=== PATIENT | male | born 1985 | race Hispanic/Latino ===

== ENCOUNTER 2017-05-10 18:39 | Inpatient (IN) | payer SELFPAY ==
[~2017-05-10 18:39] MED LIST: ISOVUE-370 76%-LOCM 1 ML ONE
[2017-05-10] MEDS ORDERED: Ondansetron HCl/PF 4 MG/2 ML Vial ONE ×2 (19:09→20:54)
[2017-05-10] MEDS ORDERED: Fentanyl 100 MCG/2 ML VIAL ONE (19:09)
[2017-05-10 19:14] LABS: Hemoglobin 18.5 g/dL (14.0-18.0); Mean Corpuscular HGB CONC 33.9 g/dL (32.0-36.0); Mean Corpuscular Hemoglobin 30.3 pg (27.0-31.0); Mean Corpuscular Volume 89.4 fl (80.0-94.0); Platelet Count 342 thou/uL (130-400); RBC Distribution Width 11.5 % (11.5-14.5); White Blood Cell (WBC) Count 19.1 thou/uL (4.8-10.8)
[2017-05-10 19:24] LABS: Lactic Acid 2.8 mmol/L (0.5-2.2)
[2017-05-10] MEDS ORDERED: Morphine 4 MG/ML VIAL ONE (19:31)
[2017-05-10 19:34] LABS: ALT (SGPT) 45 U/L (8-55); AST (SGOT) 25 U/L (5-34); Albumin 5.1 g/dL (3.5-5.0); Alkaline Phosphatase 120 U/L (40-150); Anion Gap 17 mmol/L (10-20); BUN (Urea Nitrogen) 13 mg/dL (8.9-20.6); Bilirubin, Total 0.7 mg/dL (0.2-1.2); Calc. Creatinine Clearance 0 mL/min (70-130); Calcium 10.5 mg/dL (7.8-10.44); Carbon Dioxide 26 mmol/L (22-29); Chloride 98 mmol/L (98-107); Estimated GFR-MDRD 89; Globulin 3.6 g/dL (2.4-3.5); Glucose 169 mg/dL (70-105); Lipase 14 U/L (8-78); Potassium 4.3 mmol/L (3.5-5.1); Protein, Total 8.7 g/dL (6.0-8.3); Sodium 137 mmol/L (136-145)
[2017-05-10 19:39] LABS: Band 18 % (5-11); Lymphocytes 11 % (21-51); MDiff Complete? YES; Monocytes 5 % (0-10); Neutrophil 66 % (42-75); PLT Morphology Comment Appears Adequate; RBC Morphology Normal
[2017-05-10] MEDS ORDERED: Piperacillin/Tazobactam 3.375 GM in Sodium Chloride 0.9% 100 ML IVPB ONE (19:45)
[2017-05-10] MEDS ORDERED: HYDROmorphone 0.5 MG/0.5 ML SYRINGE ONE (19:48)
--- NOTE | 2017-05-10 20:26 | RAD ---
AP VIEW OF THE CHEST: 05/10/17 INDICATION: Superior abdominal pain. IMPRESSION: Low lung volumes. No acute abnormality. COMMENTS: The exam is compared to a prior dated July 07, 2013. The examination is not appreciably changed f rom this comparison study. POS: SURESH
--- NOTE | 2017-05-10 22:47 | CT ---
CT OF ABDOMEN AND PELVIS 05/10/17 COMPARISON: 04/28/14 HISTORY: Epigastric pain and vomiting knot on rectum, painful pain with sitting. TECHNIQUE: Serial axial CT imaging obtained at 5 mm intervals from the lung bases through the pubic symphysis wi th IV contrast. Coronal reformatted imaging obtained. FINDINGS: The imaged lung bases appear unremarkable. No free intraperitoneal air or fluid is seen. The liver, s pleen, gallbladder, pancreas, adrenal glands, and kidneys appear unremarkable. Fat containing bilateral inguinal hernias are present, right larger than left. No evidence for a perirectal abscess is noted. The presacral space appears within normal limits. No focal area of bowel inflammatory change or evidence of bowel obstruction is seen. The appendix is unremarkable. The vascular structures appear patent. No pelvic, mesenteric, or retroperitoneal lymphadenopathy note d. No acute osseous abnormality seen. IMPRESSION: No acute findings. POS: NICHOLAS
--- NOTE | 2017-05-10 23:06 | ULT ---
RIGHT UPPER QUADRANT ULTRASOUND: 05/10/17 INDICATION: Epigastric and right upper quadrant abdominal pain. FINDINGS: Left hepatic lobe and pancreas are not well seen. There is slight increased echogenicity of the right hepatic lobe. Gallbladder was within normal limit s. No sonographic Clarke's sign was reported. Common bile duct measures 5.4 mm. Right kidney measures 11 cm in length. No focal renal lesion or hydronephrosis evident. IMPRESSION: 1. Mild fatty liver. 2. Some limitation to the exam as above. POS: SURESH
[2017-05-11] MEDS ORDERED: Ondansetron ODT 4 MG TAB SL PRN (00:52)
[2017-05-11] MEDS ORDERED: Ondansetron HCl/PF 4 MG/2 ML Vial IVP PRN (00:52)
[2017-05-11] MEDS ORDERED: Sodium Chloride 0.9% 1,000 ML IV SCH (00:52)
[2017-05-11 01:09] VITALS: BMI 30.7
[2017-05-11] MEDS: Morphine 10 MG/ML CARPUJECT IV PRN ×3 (01:56→17:12)
[2017-05-11] MEDS ORDERED: Piperacillin/Tazobactam 3.375 GM in Sodium Chloride 0.9% 100 ML IVPB SCH (05:00)
[2017-05-11] MEDS ORDERED: Ondansetron ODT 4 MG TAB PO PRN (05:41)
[2017-05-11] MEDS ORDERED: HYDROcodone/Acetaminophen 5/325 mg Tablet PO PRN (05:41)
[2017-05-11] MEDS: Piperacillin/Tazobactam 3.375 GM in Sodium Chloride 0.9% 100 ML IVPB SCH ×3 (05:55→18:15)
[2017-05-11] MEDS: Sodium Chloride 0.9% 1,000 ML IV SCH ×3 (06:05→20:52)
[2017-05-11 06:06] LABS: #Lymphocytes 1.4 thou/uL (1.20-3.40); #Monocytes 0.2 thou/uL (0.11-0.59); %Basophils 0.2 % (0.0-1.0); %Eosinophils 0.4 % (0.0-10.0); %Lymphocytes 15.9 % (21.0-51.0); %Monocytes 2.8 % (0.0-10.0); %Neutrophils 80.8 % (42.0-75.0); Hemoglobin 13.8 g/dL (14.0-18.0); Mean Corpuscular HGB CONC 33.4 g/dL (32.0-36.0); Mean Corpuscular Hemoglobin 30.1 pg (27.0-31.0); Mean Corpuscular Volume 90.2 fl (80.0-94.0); Mean Platelet Volume 6.1 fL (7.4-10.4); Platelet Count 242 thou/uL (130-400); RBC Distribution Width 11.5 % (11.5-14.5); Red Blood Cell (RBC) Count 4.59 mill/uL (4.70-6.10); White Blood Cell (WBC) Count 8.7 thou/uL (4.8-10.8)
[2017-05-11 06:26] LABS: ALT (SGPT) 26 U/L (8-55); AST (SGOT) 16 U/L (5-34); Albumin 3.5 g/dL (3.5-5.0); Alkaline Phosphatase 74 U/L (40-150); Anion Gap 10 mmol/L (10-20); BUN (Urea Nitrogen) 12 mg/dL (8.9-20.6); Bilirubin, Total 0.8 mg/dL (0.2-1.2); Calc. Creatinine Clearance 158 mL/min (70-130); Calcium 8.1 mg/dL (7.8-10.44); Carbon Dioxide 27 mmol/L (22-29); Chloride 104 mmol/L (98-107); Estimated GFR-MDRD Greater than 90; Globulin 2.1 g/dL (2.4-3.5); Glucose 153 mg/dL (70-105); Potassium 4.2 mmol/L (3.5-5.1); Protein, Total 5.6 g/dL (6.0-8.3); Sodium 137 mmol/L (136-145)
[2017-05-11] MEDS ORDERED: Polyethylene Glycol 3350 17 GM Packet PO SCH (09:00)
[2017-05-11] MEDS ORDERED: Famotidine/PF 20 mg/2ml Vial SLOW IVP SCH (09:00)
[2017-05-11] MEDS ORDERED: FLU VACC QS2017-18 36 mo. & older 0.5 ML SYRINGE IM ONE (09:00)
[2017-05-11] MEDS ORDERED: Pantoprazole 40 MG VIAL IVP SCH (09:00)
--- NOTE | 2017-05-11 09:59 | PDOC.PN ---
- Subjective Encounter Start Date: 05/11/17 Encounter Start Time: 09:57 Mr. Starks was seen today in follow-up of Abdominal pain. He says he continues to have 8/10 abdominal pain. He says he was nauseated and vomited a few times yesterday. He says he had a normal boweel movement yesterday. - Objective Resuscitation Status: Resuscitation Status FULL:Full Resuscitation MAR Reviewed: Yes Vital Signs & Weight: Vital Signs (12 hours) Temp Pulse Resp BP BP Pulse Ox 05/11/17 07:41 98.0 F 64 17 90/47 L 98 05/11/17 06:06 66 18 91/48 L 100 05/11/17 05:09 87 20 98/54 L 99 05/11/17 04:22 98.0 F 80 16 86/41 L 99 05/11/17 02:00 81 22 H 114/64 99 05/11/17 01:15 92 22 H 103/65 99 05/11/17 00:40 98.4 F 102 H 20 98/69 99 Weight Weight 188 lb 9 oz I&O: 05/10/17 05/11/17 05/12/17 06:59 06:59 06:59 Intake Total 1010 Output Total 400 Balance 610 Result Diagrams: 05/11/17 05:49 05/11/17 05:49 Phys Exam - Physical Examination HEENT: PERRLA Respiratory: no wheezing, no rales, no rhonchi, clear to auscultation bilateral Cardiovascular: RRR, no significant murmur, no rub Gastrointestinal: soft + diffuse tenderness, localized to the epigastric region, + voluntary guard Musculoskeletal: no edema Dx/Plan (1) Abdominal pain Code(s): R10.9 - UNSPECIFIED ABDOMINAL PAIN Status: Acute (2) Leukocytosis Code(s): D72.829 - ELEVATED WHITE BLOOD CELL COUNT, UNSPECIFIED Status: Acute (3) SIRS (systemic inflammatory response syndrome) Code(s): R65.10 - SIRS OF NON-INFECTIOUS ORIGIN W/O ACUTE ORGAN DYSFUNCTION Status: Acute - Plan * Severe Abdominal Pain- ? etiology- he does not have a surgical abdomen, and CT scan is negative- will consult GI for evaluation * Continue IV fluids, will change Pepcid to Protonix * Repeat the lactic acid level * Leukocytosis- improved * Continue Empiric antibiotics for now.
[2017-05-11 10:52] LABS: Lactic Acid 2.3 mmol/L (0.5-2.2)
--- NOTE | 2017-05-11 11:07 | HP ---
DATE OF ADMISSION: 05/10/2017 TIME OF VISIT: 0445 hours. Forty-five minutes were spent in the critical care with this patient. PRIMARY CARE PHYSICIAN: None. CODE STATUS: FULL. The patient's surrogate decision maker is Marleny Treadwell at [phone]. He has designated her, hi s to make medical decisions and should he become incapacitated. CHIEF COMPLAINT: Abdominal pain, severe. HISTORY OF PRESENT ILLNESS: Mr. Starks is a 31-year-old [place] male with no past medical h istory who presented to the emergency department for 10/10 bilateral lower quadrant abdominal pain. He has had anorexia and nausea and vomiting, but no diarrhea. Denies any GI bleeding. He has had a very painful hemorrhoid present on the left side of his rectum, either side of his anus, and therefor e has not been eating well lately anyways. The patient stated the pain got worse, so he came to the emergency department for evaluation. Here, the ER doctor was concerned that he had acute abdomen. Abdominal ultrasound and CT scan of the abdomen and pelvis with contrast were negative. By my looks to be a fair amount of stool in the col on throughout from the rectum to the terminal ileum. He does have one area of dilated bowel present just opposed to the bladder. In the emergency department on presentation, he was noted to have white count of 19.1 with left shift 18% granulocytes. He is also tachycardic at 116, blood pressure initially was okay, but trended namrata n as he was in the ER, despite 3 liters of bolus and lactic acid was elevated at 2.8. He met severe sepsis and then septic shock criteria and subsequently admitted to the IMCU. He complains of diffuse abdominal soreness, it feels like someone standing on his belly. He says it does not really come and go. No known exacerbating or alleviating factors other than Dilaudid he got in the ER, this seems to be make it better. Denies any fevers, chills, or sweats. PAST MEDICAL HISTORY: None. PAST SURGICAL HISTORY: None. HOME MEDICATIONS: None. ALLERGIES: BACTRIM. FAMILY HISTORY: Negative for clotting or bleeding disorder. No immune dysfunction. SOCIAL HISTORY: Over 1 pack per day for about 10 years. No alcohol or IV drug use. He is . REVIEW OF SYSTEMS: A 10-point review of systems was performed, negative for all other systems except stated as per HPI. PHYSICAL EXAMINATION: VITAL SIGNS: Temperature on arrival was 98.4, pulse 116, blood pressure 158/94, respiratory rate 20, O2 sat 97% on room air. Currently, temperature is 98.0, pulse 80, blood pressure 86/41, respiratory rate 16, satting 99% on room air. GENERAL: He is awake. He is alert. He is oriented x3. He is acutely ill appearing [place] male, appears to be in no acute distress. HEENT: Normocephalic, atraumatic. Pupils are equal and reactive bilaterally. Mucous membranes are moist. No visible lesion or thrush. NECK: Supple. He has no lymphadenopathy, JVD, or thyromegaly. Trachea is midline. He has normal c arotid upstrokes without bruits. LUNGS: Clear. Good air movement. Symmetrical chest excursion. He has no wheezes, no rales. He dash s no prolonged expiratory phase. There is no rhonchi heard. CARDIOVASCULAR: He is currently normal cardiac and regular. He has normal S1 and S2. I do not appr eciate murmurs or rubs. ABDOMEN: Slightly distended and slightly tympanitic. He has hyperactive bowel sounds present in the central areas. He is diffusely tender and has slight rebound. There is no guarding, no rigidity. He has no peritoneal signs. EXTREMITIES: No cyanosis or clubbing. Trace pedal edema. SKIN: Warm, moist, and well perfused. Capillary refill is 2-3 seconds. MUSCULOSKELETAL: Normal to inspection. No inflamed joints. No palpable joint effusions. NEUROLOGIC: Cranial nerves II through XII are grossly intact. He has 5/5 strength. Normal speech p attern. No focal deficits. LABORATORY AND DIAGNOSTIC DATA: Sodium 137, potassium 4.3, chloride 98, bicarbonate 26, BUN 13, crea tinine 0.98, calcium of 10.5, glucose 169. Liver function normal. His total protein is elevated at 8.7, total protein of 5.1. CBC showed a white count of 19.1, 66% granulocytes, 18% bands, hemoglobin was elevated at 18.5, hematocrit 54.5, and platelets of 342,000. Lactic acid was 2.8. Chest x-ray showed no acute cardiopulmonary disease. CT scan of the abdomen and pelvis showed no acute change or intra-abdominal pathology. Abdominal ultrasound showed mild fatty liver, normal gallbladder, negati ve Clarke sign and normal bile ducts, left lobe of the liver and pancreas not well visualized. ASSESSMENT AND PLAN: 1. Abdominal pain. 2. Septic shock by criteria. 3. Anorexia. 4. Constipation. The patient is currently in IMCU. Blood pressure is borderline in 90s/40s. We will give fluids of 1 50 mL per hour, may be bolused him here if his pressure does not come up. No urgent need for pressur e at this time, we will keep an eye. He got Zosyn and Levaquin in the ER. We will continue Zosyn fo r now as per sepsis of unidentified source. Nothing is cutaneous, I have opted not to give him vanco mycin. By my he does have stool throughout the colon. At one point in the sigmoid colon, there does appear to be a larger dilating area of air within the colon and no stool. I will start him on Mariela ax b.i.d. and see him get his bowels to move and see if that alleviates the symptoms. He has been se en and evaluated by Surgery overnight by Dr. Interiano while in the ER. I did not have any acute abdomen at that time and no urgent surgical indication. Otherwise, keep the patient n.p.o.
[2017-05-11] MEDS ORDERED: Morphine 2 MG/ML SYRINGE SLOW IVP PRN (18:07)
[2017-05-11] MEDS: Morphine 10 MG/ML CARPUJECT SLOW IVP PRN (18:15)
[2017-05-11 19:24] LABS: Amphetamine Not Detected (NotDetected); Barbiturates Screen Not Detected (NotDetected); Benzodiazepine Screen Not Detected (NotDetected); Cocaine Metabolite Screen Not Detected (NotDetected); Medtox Control Line Valid? VALID (VALID); Medtox Reader # READER 4; Methadone Not Detected (NotDetected); Methamphetamine Not Detected (NotDetected); Opiate Screen Detected (NotDetected); Oxycodone Screen Not Detected (NotDetected); Phencyclidine (PCP) Not Detected (NotDetected); THC/Cannabinoid Screen Not Detected (NotDetected); Tricyclic Screen Not Detected (NotDetected)
[2017-05-11 19:31] LABS: #Eosinphils 0.1 thou/uL (0.0-0.7); #Lymphocytes 1.8 thou/uL (1.20-3.40); #Monocytes 0.5 thou/uL (0.11-0.59); #Neutrophils 5.1 thou/uL (1.40-6.50); %Eosinophils 1.3 % (0.0-10.0); %Lymphocytes 23.9 % (21.0-51.0); %Monocytes 6.1 % (0.0-10.0); %Neutrophils 68.7 % (42.0-75.0); Hemoglobin 13.8 g/dL (14.0-18.0); Mean Corpuscular HGB CONC 33.2 g/dL (32.0-36.0); Mean Corpuscular Volume 90.3 fl (80.0-94.0); Mean Platelet Volume 6.2 fL (7.4-10.4); Platelet Count 218 thou/uL (130-400); RBC Distribution Width 11.5 % (11.5-14.5); White Blood Cell (WBC) Count 7.4 thou/uL (4.8-10.8)
[2017-05-11 20:04] LABS: FSP-Qualitative Normal (Normal)
[2017-05-11] MEDS: Pantoprazole 40 MG VIAL IVP SCH (20:51)
[2017-05-11] MEDS ORDERED: Bisacodyl 10 MG SUPP PR SCH (21:05)
--- NOTE | 2017-05-11 22:50 | CON ---
DATE OF CONSULTATION: 05/11/2017 CHIEF COMPLAINT: Abdominal pain. HISTORY OF PRESENT ILLNESS: Mr. Starks is a 31-year-old man who had onset of abdominal pain yester day afternoon around 4 p.m. The pain is severe, aching pain in the periumbilical region, more to the left side. He came to the emergency room for further care and underwent CT scan of the abdomen and pelvis, which showed no acute abnormalities. Ultrasound of the right upper quadrant, which was negat darryl. He has had no nausea or vomiting and has tolerated some small amounts of liquids today. He was given MiraLax today, but this just made him feel bloated and increased pressure in his abdomen. He had a normal formed stool yesterday morning and daily prior to that. He has had some external hemorr hoids that have caused some perirectal pain and discomfort however. He has had no blood in the stool . His weight has been stable. He did have CT scan of the abdomen and pelvis in 02/2013, 06/2013 and 04/2014 of her abdominal pain and these were all negative. He has had no fever with this, but was f ound to have significantly elevated white blood cell count on admission at 19.1, which improved to 8. 7 today. He also had an elevated lactate level on presentation. He has been given IV antibiotics an d his liver tests are normal. Lipase was normal. PAST MEDICAL HISTORY: Polysubstance abuse; however, he reports he has been off drugs and has only dash d monthly alcohol use over the last few years. Past medical history is otherwise, negative. PAST SURGICAL HISTORY: Negative. FAMILY HISTORY: Negative for GI malignancy. SOCIAL HISTORY: Smokes a pack per day. He drinks 3-4 beers once per month. He has used cocaine in the past, but he has been off of this for last 5 years. REVIEW OF SYSTEMS: Negative x10 systems reviewed except as stated in the history of present illness. PHYSICAL EXAMINATION: VITAL SIGNS: Temperature 98.2, pulse 68, blood pressure 91/54, oxygen saturation 97%. GENERAL: He is uncomfortable with abdominal pain. He is awake and oriented x3. HEENT: Eyes have no scleral icterus. Oropharynx is clear, without lesions. NECK: No cervical or supraclavicular lymphadenopathy. LUNGS: Clear to auscultation bilaterally. HEART: Regular rate and rhythm. ABDOMEN: Soft, but markedly tender in the left abdomen and he reports this is worsens with lifting t he hand off the abdomen. He does not guard. RECTAL: Reveals no stool in the rectal vault. EXTREMITIES: No lower extremity edema. His bowel sounds were absent. IMPRESSION: Severe periumbilical abdominal pain. His pain is out of proportion with the physical ex am. He does have tenderness to palpation, but no guarding. His bowel sounds are absent. He did eliot e some GoLYTELY this morning and may have an ileus, now. He reports normal bowel movements daily inc luding yesterday morning. He has had no diarrhea or blood in the stool to suggest infectious source for his pain. CT scan showed no inflammatory changes or source for his pain. The vascular structure s were patent. Ischemic process could explain the pain either at mesenteric vein thrombosis or if he has relapsed on cocaine use and spasm and mesenteric ischemia related to that. He has been evaluate d by Surgery according to the admission notes. The source of his pain at this point is undetermined. RECOMMENDATIONS: 1. Check urine tox screen to evaluate for cocaine or methamphetamine that could cause spasm of the m esenteric arteries. 2. We will check D-dimer and lactate level. 3. We will hold further oral laxatives in light of the lack of bowel sounds and he has no stool in t he rectal vault by digital exam. We will hold off further laxatives for now. His white blood cell c ount was significantly improved. He continues to have severe pain, requiring morphine. RECOMMENDATIONS: 1. Continue IV fluids and pain control. 2. Check D-dimer and lactate level and urine tox screen. 3. Continue IV antibiotics. 4. N.p.o. status as he has no bowel sounds and severe pain and concern for possibility of developmen t of the surgical process. Constipation could still be playing a significant role; however, and the colon did not appear to be markedly distended with stool by CT. If further laxatives use then we can consider suppository or enema for this. I will hold off for now. Endoscopy is unlikely to change m anagement in the immediate short term, his pain does not suggest peptic ulcer and there is no diarrhe a or blood in the stool or inflammatory changes, but CT to suggest infectious or inflammatory process in the colon.
[2017-05-12] MEDS: Piperacillin/Tazobactam 3.375 GM in Sodium Chloride 0.9% 100 ML IVPB SCH ×2 (00:13→05:35)
[2017-05-12] MEDS: Acetaminophen 325 MG TAB PO PRN (00:14)
[2017-05-12] MEDS: Morphine 10 MG/ML CARPUJECT SLOW IVP PRN ×2 (00:17→07:42)
--- NOTE | 2017-05-12 00:17 | ADD-PRG ---
ADDENDUM DATE OF SERVICE: 05/11/2017 The labs are back, Mr. Starks. His urine tox screen is negative for cocaine or methamphetamine. H is white blood cell count continues to improve. The D-dimer was normal. The lactate is down to norm al. There is no signs of severe mesenteric ischemia at this point. Perhaps his abdominal pain is wo rsened with abdominal distention and ileus related to constipation. We will give a Dulcolax supposit ory.
[2017-05-12] MEDS: Sodium Chloride 0.9% 1,000 ML IV SCH ×5 (03:25→23:15)
[2017-05-12 04:22] LABS: #Eosinphils 0.1 thou/uL (0.0-0.7); #Lymphocytes 2.1 thou/uL (1.20-3.40); #Monocytes 0.6 thou/uL (0.11-0.59); #Neutrophils 5.3 thou/uL (1.40-6.50); %Basophils 0.2 % (0.0-1.0); %Eosinophils 0.7 % (0.0-10.0); %Lymphocytes 25.5 % (21.0-51.0); %Monocytes 7.9 % (0.0-10.0); %Neutrophils 65.7 % (42.0-75.0); Hemoglobin 13.1 g/dL (14.0-18.0); Mean Corpuscular HGB CONC 32.9 g/dL (32.0-36.0); Mean Corpuscular Hemoglobin 29.7 pg (27.0-31.0); Mean Corpuscular Volume 90.2 fl (80.0-94.0); Platelet Count 202 thou/uL (130-400); RBC Distribution Width 11.3 % (11.5-14.5); Red Blood Cell (RBC) Count 4.41 mill/uL (4.70-6.10); White Blood Cell (WBC) Count 8.1 thou/uL (4.8-10.8)
[2017-05-12 04:50] LABS: ALT (SGPT) 24 U/L (8-55); AST (SGOT) 19 U/L (5-34); Albumin 3.3 g/dL (3.5-5.0); Alkaline Phosphatase 60 U/L (40-150); Anion Gap 11 mmol/L (10-20); BUN (Urea Nitrogen) 9 mg/dL (8.9-20.6); Bilirubin, Total 0.8 mg/dL (0.2-1.2); Calc. Creatinine Clearance 159 mL/min (70-130); Calcium 8.2 mg/dL (7.8-10.44); Carbon Dioxide 25 mmol/L (22-29); Chloride 104 mmol/L (98-107); Estimated GFR-MDRD Greater than 90; Globulin 2.1 g/dL (2.4-3.5); Glucose 128 mg/dL (70-105); Potassium 3.5 mmol/L (3.5-5.1); Protein, Total 5.4 g/dL (6.0-8.3); Sodium 136 mmol/L (136-145)
[2017-05-12] MEDS: Pantoprazole 40 MG VIAL IVP SCH ×2 (07:41→20:58)
--- NOTE | 2017-05-12 09:23 | PDOC.PN ---
- Subjective Encounter Start Date: 05/12/17 Encounter Start Time: 09:22 Mr. Starks was seen today in follow-up of abdominal pain. He says he continues to have fairly severe abdominal pain. He had only a small stool after the dulcolax. He is still holding the stool a little due to rectal pain. - Objective Resuscitation Status: Resuscitation Status FULL:Full Resuscitation MAR Reviewed: Yes Vital Signs & Weight: Vital Signs (12 hours) Temp Pulse Resp BP Pulse Ox 05/12/17 08:00 98.3 F 55 L 21 H 116/72 97 05/12/17 06:10 66 16 98/40 L 97 05/12/17 04:41 98.3 F 60 20 120/75 96 05/12/17 00:40 100.2 F H 69 20 119/56 L 97 05/11/17 22:20 77 20 127/71 95 Weight Weight 192 lb 1 oz I&O: 05/11/17 05/12/17 05/13/17 06:59 06:59 06:59 Intake Total 1010 1800 Output Total 400 Balance 610 1800 Result Diagrams: 05/12/17 03:52 05/12/17 03:52 Phys Exam - Physical Examination HEENT: PERRLA Respiratory: no wheezing, no rales, no rhonchi, clear to auscultation bilateral Cardiovascular: RRR, no significant murmur Gastrointestinal: soft, positive bowel sounds + diffuse tenderness, no rebound or guarding good bowel sounds this morning Musculoskeletal: no edema Dx/Plan (1) Abdominal pain Code(s): R10.9 - UNSPECIFIED ABDOMINAL PAIN Status: Acute (2) Leukocytosis Code(s): D72.829 - ELEVATED WHITE BLOOD CELL COUNT, UNSPECIFIED Status: Acute (3) SIRS (systemic inflammatory response syndrome) Code(s): R65.10 - SIRS OF NON-INFECTIOUS ORIGIN W/O ACUTE ORGAN DYSFUNCTION Status: Acute - Plan * Abdominal Pain- likely from constipation. Will add mineral oil and a stool softener * Will also use an Anusol suppository hopefully to improve rectal pain * Cultures are negative- will therefore discontinue antibiotics * SIRS has resolved- he can be moved to medical
[2017-05-12] MEDS ORDERED: Hydrocortisone Acetate 25 MG Suppository PR SCH (09:30)
[2017-05-12] MEDS: Docusate 100 MG CAP PO SCH ×2 (10:19→20:55)
[2017-05-12] MEDS: Mineral Oil PER 1 ML PO SCH (10:20)
--- NOTE | 2017-05-12 11:54 | PRG ---
DATE OF SERVICE: 05/12/2017 SUBJECTIVE: Mr. Starks continues to have lower abdominal periumbilical abdominal pain requiring mo rphine. He has had no nausea or vomiting. He had a small amount of semi-formed stool output with th e suppositories last night. He has had no blood in the stool. OBJECTIVE: VITAL SIGNS: Temperature 98.9, pulse 65, blood pressure 134/73. GENERAL: He is in no acute distress, awake and alert. LUNGS: Clear to auscultation bilaterally. HEART: Regular rate and rhythm. ABDOMEN: Soft, without guarding; however, he has significant tenderness diffusely. Bowel sounds are present. EXTREMITIES: No lower extremity edema. LABORATORY DATA: His white blood cell count is 8.1, hemoglobin 13.3, platelets 202. Creatinine 0.8. LFTs are normal. Albumin 3.3. IMPRESSION: Periumbilical abdominal pain. No structural or obvious inflammatory abnormalities ident ified by CT scan. His white count is back to normal. He did present with severe dehydration and hem oconcentration, which is improved with IV fluids. D-dimer was normal. The lactate has returned to n ormal. He did have 3 CT scans of the abdomen and pelvis back in 2012 and 2013. For abdominal pain, no obvious source was identified then. This, however, is a new episode now. No obvious symptoms to suggest inflammatory bowel disease. He does have a history of polysubstance abuse and possibility of drug seeking behavior is a consideration. RECOMMENDATIONS: Plan EGD and colonoscopy tomorrow in light of the severe ongoing pain without any obvious source identified.
[2017-05-12] MEDS: HYDROcodone/Acetaminophen 10/325 mg Tablet PO PRN ×2 (12:59→20:55)
[2017-05-12] MEDS: Morphine 4 MG/ML VIAL IV PRN ×3 (13:36→23:05)
[2017-05-12] MEDS: GoLYTELY 4,000 ml Bottle PO SCH ×2 (13:38→20:00)
[2017-05-12] MEDS: Ondansetron HCl/PF 4 MG/2 ML Vial IVP PRN (18:13)
[2017-05-13] MEDS: Ondansetron HCl/PF 4 MG/2 ML Vial IVP PRN (02:34)
[2017-05-13] MEDS: Morphine 4 MG/ML VIAL IV PRN ×2 (02:53→08:41)
[2017-05-13] MEDS: HYDROcodone/Acetaminophen 10/325 mg Tablet PO PRN (06:01)
[2017-05-13] MEDS: Sodium Chloride 0.9% 1,000 ML IV SCH (06:03)
--- NOTE | 2017-05-13 07:39 | PDOC.PN ---
- Subjective Encounter Start Date: 05/13/17 Encounter Start Time: 07:37 Mr. Starks was seen today in follow-up of Abdominal pain. - Objective Resuscitation Status: Resuscitation Status FULL:Full Resuscitation MAR Reviewed: Yes Vital Signs & Weight: Vital Signs (12 hours) Temp Pulse Resp BP BP Pulse Ox 05/13/17 07:05 98.1 F 60 18 124/77 92 L 05/13/17 04:24 98.9 F 58 L 16 126/71 90 L 05/13/17 00:00 99.0 F 62 16 138/80 90 L 05/12/17 20:00 99.3 F 71 16 92 L Weight Weight 196 lb I&O: 05/12/17 05/13/17 05/14/17 06:59 06:59 06:59 Intake Total 1800 2670 Output Total 1780 Balance 1800 890 Result Diagrams: 05/12/17 03:52 05/12/17 03:52 Phys Exam - Physical Examination HEENT: PERRLA Respiratory: no wheezing, no rales, no rhonchi, clear to auscultation bilateral Cardiovascular: RRR, no significant murmur Gastrointestinal: soft, positive bowel sounds + diffuse tenderness, no rebound or guarding Musculoskeletal: no edema Dx/Plan (1) Abdominal pain Code(s): R10.9 - UNSPECIFIED ABDOMINAL PAIN Status: Acute (2) Leukocytosis Code(s): D72.829 - ELEVATED WHITE BLOOD CELL COUNT, UNSPECIFIED Status: Acute (3) SIRS (systemic inflammatory response syndrome) Code(s): R65.10 - SIRS OF NON-INFECTIOUS ORIGIN W/O ACUTE ORGAN DYSFUNCTION Status: Acute - Plan * Abdominal pain- ? etiology- plan is for EGD and Colonoscopy today. * SIRS- resolved
[2017-05-13] MEDS ORDERED: Fentanyl 100 MCG/2 ML VIAL ONE (09:19)
--- NOTE | 2017-05-13 11:13 | OP ---
DATE OF PROCEDURE: 05/13/2017 PROCEDURE: Esophagogastroduodenoscopy with biopsy and colonoscopy. PREOPERATIVE DIAGNOSIS: Periumbilical abdominal pain PROCEDURE IN DETAIL: Informed consent was obtained from the patient. He was sedated with total intr avenous anesthesia. The bite block was placed and the endoscope was advanced easily to the second po rtion of the duodenum and retroflexion was performed in the stomach. The esophagus was normal. The GE junction was normal. There was mild erythematous gastritis in the fundus of the stomach, which wa s likely from retching. The remainder of the stomach was normal including retroflexed views. The py lorus and first and second portions of the duodenum were normal. Biopsies were obtained from the duo denum to rule out celiac disease. Biopsies were obtained from the stomach to rule out H. pylori. r was suctioned from the stomach. The patient was turned around. Rectal exam revealed prominent ext ernal hemorrhoid. This was not thrombosed at this point. The internal digital exam was normal. The colonoscope was advanced easily to the terminal ileum. The mucosa of the terminal ileum was normal. The ileocecal valve and appendiceal orifice were clearly identified. The colonic mucosa was normal throughout. The preparation quality was good. Retroflex views in the rectum were normal. IMPRESSION: 1. Mild erythematous gastritis in the fundus, likely from retching. Biopsies were obtained from the stomach to rule out Helicobacter pylori. 2. Otherwise normal esophagogastroduodenoscopy. 3. Duodenal biopsies were obtained to rule out celiac disease. 4. Normal colonoscopy well into the terminal ileum. 5. Prominent external hemorrhoids, which is not thrombosed currently. RECOMMENDATIONS: 1. Await histopathology. 2. Trial of hyoscyamine for the pain. Stop opioid pain medication. 3. Advance diet as tolerated. 4. Etiology of his abdominal pain is undetermined. He has a CT scan which was negative. Upper and lower endoscopies are negative. His abdominal exam is soft; however, he has significant tenderness. There is no diarrhea or blood in the stool. He is not constipated, status post bowel prep. He has been taking significant amount of morphine and there may be some drug seeking behavior as part of the contributing factor to the symptoms. He did present extremely hemoconcentrated. This has been joseph ected with IV fluids. We will now treat for functional symptoms. The opioids can be discontinued an d we will give a trial of antispasmodic medication.
[2017-05-13] MEDS ORDERED: Lidocaine 1% PF 5 ML VIAL ONE (12:08)
[2017-05-13] MEDS ORDERED: Propofol 200 MG/20 ML VIAL ONE (12:08)
[2017-05-13] MEDS: Pantoprazole 40 MG VIAL IVP SCH (12:49)
[2017-05-13] MEDS: Mineral Oil PER 1 ML PO SCH (12:49)
[2017-05-13] MEDS: Docusate 100 MG CAP PO SCH ×2 (12:50→22:02)
--- NOTE | 2017-05-13 13:51 | RAD ---
RADIOGRAPH CHEST 1 VIEW: Date: 05/13/17. Time: 9:37 a.m. HISTORY: A 32-year-old male with hypoxemia. COMPARISON: 05/10/17. FINDINGS: Again, the lungs are very hypoinflated. There is a new finding of complete silhouetting of the right hemidiaphragm by airspace density at the right lung base. No pulmonary edema is identified. No pne umothorax is identified. IMPRESSION: 1. New airspace density/consolidation at the right lung base. This could be atelectasis or pneumoni a. 2. Lungs remain hypoinflated. RANDI [] POS: SURESH
[2017-05-13] MEDS: Hyoscyamine Sulfate SL 0.125 mg Tablet SL PRN ×2 (15:26→22:00)
[2017-05-13] MEDS: Donnatal Elixir 16.2 MG/5 ML UDCUP PO SCH (18:01)
[2017-05-13] MEDS: Acetaminophen 325 MG TAB PO PRN (22:04)
[2017-05-13] MEDS ORDERED: Clindamycin/D5W 300 MG/50 ML BAG IVPB SCH (23:15)
[2017-05-14] MEDS: Donnatal Elixir 16.2 MG/5 ML UDCUP PO SCH ×2 (00:05→05:57)
[2017-05-14] MEDS: Clindamycin/D5W 900 MG in Premix Bag 1 BAG IVPB SCH ×2 (01:59→10:52)
[2017-05-14] MEDS: Docusate 100 MG CAP PO SCH ×2 (09:05→21:25)
--- NOTE | 2017-05-14 17:44 | PRG ---
DATE OF SERVICE: 05/14/2017 SUBJECTIVE: Mr. Starks is feeling better. His abdominal pain is resolved. He is tolerating a daniella id diet. He has had a bowel movement since the colonoscopy. He is concerned about this. OBJECTIVE: VITAL SIGNS: Temperature 99.1, pulse 74, blood pressure 142/88. GENERAL: He is in no acute distress, awake and alert. LUNGS: Clear to auscultation bilaterally. HEART: Regular rate and rhythm. ABDOMEN: Soft, nontender, nondistended, bowel sounds are present. EXTREMITIES: No lower extremity edema. IMPRESSION: 1. Functional periumbilical abdominal pain, currently resolved. This could have been related to vir al gastroenteritis; however, he has had known diarrhea. Upper and lower endoscopies were negative ov erall and biopsies are pending. 2. He had fever this morning likely secondary to atelectasis related to hypoventilation with the keerthi n and morphine. He is doing better today with morphine discontinued. RECOMMENDATIONS: 1. We will start MiraLax 17 grams daily. 2. Anticipate discharge home in the morning. I will sign off. Please call if GI can be of assistan ce.
[2017-05-14] MEDS ORDERED: Polyethylene Glycol 3350 17 GM Packet PO SCH (18:00)
--- NOTE | 2017-05-14 20:41 | PDOC.PN ---
- Subjective Encounter Start Date: 05/14/17 Encounter Start Time: 14:00 Patient seen and examined. Intermittent chills. Abd pain improving. No overnight events - Objective Resuscitation Status: Resuscitation Status FULL:Full Resuscitation MAR Reviewed: Yes Vital Signs & Weight: Vital Signs (12 hours) Temp Pulse Resp BP Pulse Ox 05/14/17 16:00 99.1 F 74 16 142/88 H 97 05/14/17 11:30 98.1 F 76 16 143/89 H 92 L Weight Weight 188 lb I&O: 05/13/17 05/14/17 05/15/17 06:59 06:59 06:59 Intake Total 2670 1640 750 Output Total 1780 Balance 890 1640 750 Result Diagrams: 05/12/17 03:52 05/12/17 03:52 Phys Exam - Physical Examination Constitutional: NAD Respiratory: no wheezing, no rhonchi Scat rales at bases Cardiovascular: RRR, no rub Gastrointestinal: soft, positive bowel sounds mild gen tend Musculoskeletal: no edema Neurological: moves all 4 limbs Dx/Plan - Plan DVT proph w/SCDs IMPRESSION: 1. Sepsis with acute organ dysfunction 2. CAP - suspected viral 3. Abd pain - improving 4. Obesity BMI 30.3 5. Lactic acidosis/Dehydration - resolved PLAN: * Change Atbx to PO (has no IV access) * Cont to monitor * DC in AM if Afebrile Review of Systems - Review of Systems Respiratory: Cough, Sputum. negative: Dry, Shortness of Breath, Hemoptysis, SOB with Excertion, Pleuritic Pain, Wheezing Cardiovascular: negative: chest pain, palpitations, orthopnea, paroxysmal nocturnal dyspnea, edema, light headedness - Medications/Allergies Allergies/Adverse Reactions: Allergies Allergy/AdvReac Type Severity Reaction Status Date / Time sulfamethoxazole Allergy Verified 07/08/13 04:16 [From Bactrim] trimethoprim [From Bactrim] Allergy Verified 07/08/13 05:49 Medications: Current Medications Acetaminophen (Tylenol) 650 mg PO Q4H PRN PRN Reason: Headache/Fever or Pain Last Admin: 05/13/17 22:04 Dose: 650 mg Amoxicillin/Clavulanate Potassium (Augmentin) 875 mg PO Q12HR [facility] Docusate Sodium (Colace) 100 mg PO BID NICKOLAS Last Admin: 05/14/17 09:05 Dose: 100 mg Hyoscyamine Sulfate (Levsin Sl) 0.125 mg SL Q4H PRN PRN Reason: GI Cramping Last Admin: 05/13/17 22:00 Dose: 0.125 mg Levofloxacin (Levaquin) 750 mg PO 0600 [facility] Ondansetron HCl (Zofran Odt) 4 mg PO Q6H PRN PRN Reason: Nausea/Vomiting Pantoprazole Sodium (Protonix) 40 mg PO DAILY [facility] Last Admin: 05/14/17 09:06 Dose: 40 mg Polyethylene Glycol (Miralax) 17 gm PO DAILY [facility]
[2017-05-14] MEDS: Amoxicillin/Potassium Clav 875 MG TAB PO SCH (21:25)
[2017-05-15 06:28] LABS: Albumin 3.7 g/dL (3.5-5.0); Anion Gap 13 mmol/L (10-20); BUN (Urea Nitrogen) 8 mg/dL (8.9-20.6); BUN/Creatinine Ratio 9.76; Calc. Creatinine Clearance 155 mL/min (70-130); Calcium 9.4 mg/dL (7.8-10.44); Carbon Dioxide 25 mmol/L (22-29); Chloride 106 mmol/L (98-107); Estimated GFR-MDRD Greater than 90; Glucose 217 mg/dL (70-105); Potassium 3.6 mmol/L (3.5-5.1); Sodium 140 mmol/L (136-145)
[2017-05-15 06:46] LABS: Band 2 % (5-11); Eosinophils 1 % (0-10); Hemoglobin 14.5 g/dL (14.0-18.0); Lymphocytes 26 % (21-51); MDiff Complete? YES; Mean Corpuscular HGB CONC 33.6 g/dL (32.0-36.0); Mean Corpuscular Volume 89.2 fl (80.0-94.0); Mean Platelet Volume 6.3 fL (7.4-10.4); Monocytes 5 % (0-10); Neutrophil 63 % (42-75); PLT Morphology Comment Appears Adequate; Platelet Count 293 thou/uL (130-400); RBC Distribution Width 11.6 % (11.5-14.5); RBC Morphology Normal; Reactive Lymphocytes 3 % (0-10); Red Blood Cell (RBC) Count 4.83 mill/uL (4.70-6.10); White Blood Cell (WBC) Count 7.9 thou/uL (4.8-10.8)
[2017-05-15 07:40] VITALS: TEMP 98.1
[2017-05-15] MEDS: Amoxicillin/Potassium Clav 875 MG TAB PO SCH (08:46)
[2017-05-15] MEDS: Docusate 100 MG CAP PO SCH (08:46)
[2017-05-15] MEDS ORDERED: Polyethylene Glycol 3350 17 GM Packet PO SCH (09:00)
[2017-05-15] MEDS ORDERED: Bisacodyl 10 MG SUPP PR SCH (10:15)
[2017-05-15 11:34] VITALS: BP 127/67
--- NOTE | 2017-05-16 07:14 | DIS ---
DATE OF ADMISSION: 05/10/2017 DATE OF DISCHARGE: 05/15/2017 DISCHARGE DISPOSITION: Home. FOLLOWUP: 1. Follow up with primary care physician at [facility]. Please note that patient does not h ave a primary care physician at this time. 2. Follow up with Dr. Saeed in 2-3 weeks. ALLERGIES: The patient is allergic to BACTRIM. DISCHARGE MEDICATIONS: 1. Levaquin 750 mg daily for the next 5 days. 2. MiraLax 17 grams daily. INPATIENT CONSULTANTS: Gastroenterology, Dr. Saeed. The patient was seen and examined on the day of discharge. BRIEF HOSPITAL COURSE: Patient is a 32-year-old male with no significant past medical history who pr esented to the hospital with abdominal discomfort. CT scan of the abdomen and pelvis on admission wa s negative for acute findings. Abdominal ultrasound showed mild fatty liver. His chest x-ray was ne gative on admission. He was seen by Gastroenterology, Dr. Saeed. He underwent EGD that showed mild erythematous gastritis in the fundus, likely from retching. Colonoscopy was normal. He had prominen t external hemorrhoids. The patient spiked fever during this hospital stay, requiring a repeat chest x-ray that was consistent with right lung basilar consolidation. He was started on Levaquin with go od improvement. He has been afebrile almost for the last 24 hours. He has been cleared by consultan ts for discharge. FINAL DIAGNOSES: 1. Functional periumbilical abdominal pain of unclear etiology, resolved. 2. External hemorrhoids. 3. Sepsis with acute organ dysfunction secondary to community-acquired pneumonia. Possibilities inc lude viral versus pneumococcal. Good improvement with Levaquin. 4. Obesity with a BMI of 30.3. 5. Lactic acidosis, resolved. 6. Dehydration, resolved. SIGNIFICANT LABORATORY DATA: 1. WBC on admission 19.1, at discharge 7.9. Lactic acid on admission 2.8. Repeat was 1.0 2. Blood cultures negative. Influenzae A and B testing was negative. Plan of care was discussed with the patient in detail. He stated understanding. Total time coordinating the discharge of this patient was 33 minutes.
== END 2017-05-15 12:39 | disposition home or self-care (01) | DRG 871 ==
LOC: ERS 18:39 → IMCU/EMU 23:20 → ONC 05-12 09:52
PROVIDERS: ADMIT Internal Medicine Infectious Disease; ATTEND Internal Medicine Infectious Disease
PROC: 0DB98ZX Excision of Duodenum, Via Natural or Artificial Opening Endoscopic, Diagnostic (ICD-10-PCS; principal; 2017-05-13)
PROC: 0DB68ZX Excision of Stomach, Via Natural or Artificial Opening Endoscopic, Diagnostic (ICD-10-PCS; 2017-05-13)
PROC: 0DJD8ZZ Inspection of Lower Intestinal Tract, Via Natural or Artificial Opening Endoscopic (ICD-10-PCS; 2017-05-13)
DX: A41.89 Other specified sepsis (principal); J12.9 Viral pneumonia, unspecified; K56.7 Ileus, unspecified; J98.11 Atelectasis; E86.0 Dehydration; Z88.1 Allergy status to other antibiotic agents; F17.210 Nicotine dependence, cigarettes, uncomplicated; K59.00 Constipation, unspecified; K29.70 Gastritis, unspecified, without bleeding; K64.4 Residual hemorrhoidal skin tags; F19.11 Other psychoactive substance abuse, in remission; E66.9 Obesity, unspecified; Z68.30 Body mass index [BMI] 30.0-30.9, adult; R65.20 Severe sepsis without septic shock
CPT/HCPCS: 36415; 71010; 71045; 74177; 76705; 80053; 80069; 80306; 83605; 83690; 83735; 85007; 85025; 85027; 85362; 87040; 88305; 88312; 96361; 96365; 96367; 96375; 96376; 99406; C9113; J1170; J1956; J2001; J2270; J2405; J2543; J2704; J3010; J3490; J7050

== ENCOUNTER 2018-06-09 15:43 | Emergency (ER) | payer SELFPAY ==
[2018-06-09] MEDS ORDERED: Ibuprofen 800 MG TAB ONE (15:55)
[2018-06-09] MEDS ORDERED: Acetaminophen 500 MG TAB ONE (16:00)
[2018-06-09] MEDS ORDERED: Ondansetron PF 4 MG/2 ML Vial ONE (16:00)
[2018-06-09] MEDS ORDERED: Ketorolac Tromethamine 30 MG/ML VIAL ONE (16:00)
[2018-06-09 16:20] LABS: #Monocytes 0.5 thou/uL (0.11-0.59); #Neutrophils 3.9 thou/uL (1.40-6.50); %Basophils 0.6 % (0.0-1.0); %Eosinophils 0.4 % (0.0-10.0); %Monocytes 9.5 % (0.0-10.0); %Neutrophils 70.5 % (42.0-75.0); Hemoglobin 16.9 g/dL (14.0-18.0); Mean Corpuscular HGB CONC 34.6 g/dL (32.0-36.0); Mean Corpuscular Hemoglobin 29.8 pg (27.0-31.0); Mean Corpuscular Volume 86.2 fL (78.0-98.0); Mean Platelet Volume 6.6 fL (7.4-10.4); Platelet Count 197 thou/uL (130-400); RBC Distribution Width 11.2 % (11.5-14.5); Red Blood Cell (RBC) Count 5.68 mill/uL (4.70-6.10); White Blood Cell (WBC) Count 5.5 thou/uL (4.8-10.8)
--- NOTE | 2018-06-09 16:25 | RAD ---
CHEST 1 VIEW: Date: 06/09/18 INDICATION: History of chest pain. COMPARISON: Prior exam dated 05/13/17. FINDINGS: Lungs are clear. Cardiomediastinal silhouette is within normal limits. No acute osseous abnormality i s evident. IMPRESSION: No acute abnormality. POS: [facility]
[2018-06-09 16:45] LABS: ALT (SGPT) 66 U/L (8-55); AST (SGOT) 54 U/L (5-34); Albumin 4.2 g/dL (3.5-5.0); Alkaline Phosphatase 124 U/L (40-150); Anion Gap 16 mmol/L (10-20); BUN (Urea Nitrogen) 5 mg/dL (8.9-20.6); Bilirubin, Total 0.6 mg/dL (0.2-1.2); Calc. Creatinine Clearance 0 mL/min (70-130); Calcium 9.5 mg/dL (7.8-10.44); Carbon Dioxide 20 mmol/L (22-29); Chloride 100 mmol/L (98-107); Estimated GFR-MDRD Greater than 90; Globulin 3.2 g/dL (2.4-3.5); Glucose 227 mg/dL (70-105); Potassium 4.3 mmol/L (3.5-5.1); Protein, Total 7.4 g/dL (6.0-8.3); Sodium 132 mmol/L (136-145)
[2018-06-09 19:02] LABS: Troponin I Less than 0.010 ng/mL (< 0.028)
--- NOTE | 2018-06-09 19:11 | ULT ---
RIGHT UPPER QUADRANT ULTRASOUND: INDICATIONS: Epigastric pain. Chest pain. COMPARISON: 05/10/2017 FINDINGS: There is increased echogenicity of the hepatic parenchyma. No focal hepatic lesion or acute gallblad lucio pathology. The common duct is normal in caliber at 5 mm. No ascites. IMPRESSION: 1. Increased echogenicity of the hepatic parenchyma, which can be seen in the setting of hepatic alonso atosis. Correlate with liver function enzymes. 2. No acute gallbladder pathology. POS: [facility]
[2018-06-09 19:16] LABS: Bilirubin Negative (Negative); Blood, Urine Negative (Negative); Clarity CLEAR (Clear); Glucose, Urine (Dipstick) >=1000 mg/dL (Negative); Leukocyte Negative (Negative); Nitrite Negative (Negative); Protein, Urine (Dipstick) Negative (Neg-Trace); Urobilinogen 0.2 mg/dL (0.2-1.0); pH, Urine 5.5 (5.0-9.0)
[2018-06-09 19:19] LABS: Specific Gravity, Urine 1.059 (1.002-1.036)
--- NOTE | 2018-06-09 19:29 | CT ---
ABDOMEN CT WITH CONTRAST: PELVIS CT WITH CONTRAST: HISTORY: Right-sided chest pain. Diffuse abdominal pain. COMPARISON: 05/10/2017 FINDINGS: ABDOMEN: The lung bases are clear. Minimal atelectasis and scarring in the left lower lobe. Heart size is normal. No pericardial effusion. The descending thoracic aorta and abdominal aorta have a n ormal caliber. No periaortic fat stranding. The portal vein is patent. Unremarkable gallbladder. The liver, spleen, pancreas, and adrenal glands have appropriate enhancement. No gastrohepatic, retrocrural, or periportal lymphadenopathy. Symmetric enhancement of the kidneys. Bilaterally, no obstructive uropathy. No mesenteric mass, lymphadenopathy, free air, or free fluid. Limited evaluation of the alimental canal due to lack of oral contrast. No evidence of bowel obstruc tion. The ileocecal junction appears to be normal. The appendix is normal in caliber. Nondistended , nondilated colon with scattered fecal material. PELVIS: No mass, lymphadenopathy, free air, or free fluid. There are fat-containing inguinal hernia s bilaterally. Unremarkable urinary bladder. No lytic or blastic lesions in the osseous structures. IMPRESSION: No acute abnormality in the abdomen or pelvis. POS: [facility]
== END 2018-06-09 19:35 | disposition home or self-care (01) ==
LOC: ERS 15:43
DX: B34.9 Viral infection, unspecified (principal); R07.9 Chest pain, unspecified; F17.210 Nicotine dependence, cigarettes, uncomplicated
CPT/HCPCS: 36415; 36416; 71045; 74177; 76705; 80053; 81003; 83605; 83690; 84484; 85025; 87040; 87804; 93005; 96361; 96374; 96375; J1885; J2405; Q9966

== ENCOUNTER 2018-06-27 22:54 | Emergency (ER) | payer OTHER, SELFPAY | END 2018-06-28 00:50 | disposition home or self-care (01) | LOC: ERS 22:54 | DX: B37.42 Candidal balanitis (principal); F17.210 Nicotine dependence, cigarettes, uncomplicated | CPT/HCPCS: 99282 ==

== ENCOUNTER 2018-06-29 09:44 | Emergency (ER) | payer OTHER ==
[2018-06-29 10:56] LABS: Bilirubin Negative (Negative); Blood, Urine Trace (Negative); Clarity CLEAR (Clear); Glucose, Urine (Dipstick) >=1000 mg/dL (Negative); Leukocyte Negative (Negative); Nitrite Negative (Negative); Protein, Urine (Dipstick) Negative (Neg-Trace); Specific Gravity, Urine 1.044 (1.002-1.036); Urobilinogen 0.2 mg/dL (0.2-1.0); pH, Urine 5.5 (5.0-9.0)
[2018-06-29 10:59] LABS: Bacteria/HPF None Seen HPF (None Seen); Hyaline Casts/LPF 0-3 HYALINE CAST LPF (0-3 Hyaline); RBC/HPF 0-3 HPF (0-3); Squamous Epithelial None Seen HPF (0-3); WBC/HPF 0-3 HPF (0-3)
== END 2018-06-29 12:25 | disposition home or self-care (01) ==
LOC: ERS 09:44
DX: B37.42 Candidal balanitis (principal); R73.9 Hyperglycemia, unspecified; F17.210 Nicotine dependence, cigarettes, uncomplicated
CPT/HCPCS: 36416; 81003; 81015; 87070; 87077; 87086; 87205; 99283

== ENCOUNTER 2018-12-12 07:18 | Observation (INO) | payer OTHER ==
[2018-12-12] MEDS ORDERED: Nitroglycerin 2% Ointment 1 INCH/1 GM Packet ONE (07:33)
--- NOTE | 2018-12-12 07:55 | RAD ---
PORTABLE CHEST: Date: 12/12/18 PROVIDED CLINICAL HISTORY: Right arm numbness. FINDINGS: Comparison with 06/09/18. The lungs are hypoinflated, limiting evaluation. Persistent elevation of the right hemidiaphragm. Car diac and mediastinal silhouette is not definitely changed in appearance. No focal consolidation, pleu ral fluid, or pneumothorax apparent. IMPRESSION: Hypoinflated exam without evidence for acute cardiopulmonary process. POS: [facility]
[2018-12-12 07:58] LABS: #Basophils 0.1 thou/uL (0.0-0.2); #Eosinphils 0.1 thou/uL (0.0-0.7); #Lymphocytes 3.3 thou/uL (1.20-3.40); #Monocytes 0.5 thou/uL (0.11-0.59); %Basophils 0.9 % (0.0-1.0); %Lymphocytes 29.7 % (21.0-51.0); %Monocytes 4.9 % (0.0-10.0); %Neutrophils 63.5 % (42.0-75.0); Hemoglobin 16.4 g/dL (14.0-18.0); Mean Corpuscular HGB CONC 35.2 g/dL (32.0-36.0); Mean Corpuscular Hemoglobin 29.9 pg (27.0-31.0); Mean Corpuscular Volume 84.9 fL (78.0-98.0); Mean Platelet Volume 6.8 fL (7.4-10.4); Platelet Count 307 thou/uL (130-400); RBC Distribution Width 11.9 % (11.5-14.5); Red Blood Cell (RBC) Count 5.49 mill/uL (4.70-6.10); White Blood Cell (WBC) Count 11.1 thou/uL (4.8-10.8)
[2018-12-12 08:17] LABS: ALT (SGPT) 35 U/L (8-55); AST (SGOT) 28 U/L (5-34); Albumin 4.3 g/dL (3.5-5.0); Alkaline Phosphatase 127 U/L (40-150); Anion Gap 15 mmol/L (10-20); BUN (Urea Nitrogen) 9 mg/dL (8.9-20.6); Bilirubin, Total 0.5 mg/dL (0.2-1.2); CK (CPK) 124 U/L (30-200); Calc. Creatinine Clearance 0 mL/min (70-130); Calcium 9.6 mg/dL (7.8-10.44); Carbon Dioxide 20 mmol/L (22-29); Chloride 104 mmol/L (98-107); Estimated GFR-MDRD Greater than 90; Glucose 215 mg/dL (70-105); Lipase 24 U/L (8-78); Potassium 4.2 mmol/L (3.5-5.1); Protein, Total 7.3 g/dL (6.0-8.3); Sodium 135 mmol/L (136-145)
[2018-12-12] MEDS ORDERED: Morphine 4 MG/ML VIAL ONE ×2 (08:45→12:32)
--- NOTE | 2018-12-12 09:18 | CT ---
CTA THORAX WITH CONTRAST CTA ABDOMEN WITH CONTRAST: (Computed Tomographic Angiography, chest(noncoronary) with contrast material, and image postprocessin g) (Computed Tomographic Angiography, abdomen with contrast material, and image postprocessing) DATE: 12/12/18 TIME: 0803 hours HISTORY: 33-year-old male with acute chest pain radiating to back. Rule out aortic dissection. TECHNIQUE: IV injection of iodinated contrast: 100 mL [id number]. Arterial phase bolus chasing technique. Scan acquisition from top of top of aortic arch to iliac crests. 3D MIP reconstructions in sagittal and coronal planes. FINDINGS: There is no aortic dissection, aneurysm, rupture, or atherosclerotic calcification. Mild ectasia of a scending thoracic aorta, 3.2 cm diameter. No other aortic abnormality. No pulmonary thromboembolism. No pleural effusion or pneumothorax. No cardiomegaly, pericardial effusion, coronary atherosclerotic calcification, mediastinal lymphadeno cosme, or hilar lymphadenopathy. No pulmonary edema, consolidation, or mass. Trachea and major bronchi are patent and clear. Normal appendix. Within the limitations of an arterial phase-only scan, no abnormality identified involving kidneys, a drenals, pancreas, liver, or spleen. No moderate size or large hiatal hernia. No ascites or retroperitoneal hematoma identified. Normal celiac artery, superior mesenteric artery, bilateral renal arteries, and bilateral common missy c arteries. Thoracic and lumbar vertebral body heights are maintained. No high grade spondylosis identified. No d estructive osseous sternal or rib lesion. Normal brachiocephalic artery, left subclavian artery, and proximal portion of left common carotid ar lakisha. No small bowel dilation. IMPRESSION: Normal. jn[] POS: [facility]
[2018-12-12] MEDS ORDERED: Acetaminophen 500 MG TAB ONE (09:56)
[2018-12-12] MEDS ORDERED: Ketorolac Tromethamine 30 MG/ML VIAL ONE (10:01)
[2018-12-12 11:05] LABS: Troponin I Less than 0.010 ng/mL (< 0.028)
[2018-12-12] MEDS ORDERED: Dicyclomine 20 MG TAB ONE (11:42)
[2018-12-12] MEDS ORDERED: Lidocaine Viscous Sol 2% 15 ml UD Cup ONE (11:42)
[2018-12-12] MEDS ORDERED: diphenhydrAMINE 25 MG CAP ONE (11:42)
[2018-12-12] MEDS ORDERED: Mag-Al 1200 mg/1200 mg/30 ML UDCUP ONE (11:42)
[2018-12-12] MEDS ORDERED: Aspirin Chewable 81 MG TAB ONE (12:32)
[2018-12-12] MEDS ORDERED: ISOVUE-370 76%-LOCM 1 ML ONE (13:31)
[2018-12-12] MEDS ORDERED: Ketamine 50 MG/ML (10ML VIAL) ONE (16:32)
[2018-12-12] MEDS ORDERED: hydrOXYzine 25 MG TAB PO PRN (18:40)
[2018-12-12] MEDS ORDERED: HumaLOG 300 UNITS/3 ML VIAL SC PRN ×2 (18:41)
[2018-12-12] MEDS ORDERED: Dextrose 50% Abboject 50 ML SYRINGE SLOW IVP PRN (18:41)
[2018-12-12] MEDS ORDERED: Dextrose 5% in Water 1,000 ML IV PRN (18:41)
[2018-12-12] MEDS ORDERED: Morphine 4 MG/ML VIAL SLOW IVP PRN (18:42)
[2018-12-12] MEDS ORDERED: Ketorolac Tromethamine 30 MG/ML VIAL IVP PRN (18:45)
[2018-12-12 19:21] LABS: Acetaminophen Less than 6.0 mcg/mL (10.0-30.0); Alcohol Less than 10 mg/dL (Less than 10); Salicylate Less than 8.0 mg/dL (15.0-30.0)
--- NOTE | 2018-12-12 19:22 | CT ---
Exam: Head CT without contrast HISTORY: Right-sided numbness. COMPARISON: 02/15/2015 FINDINGS: Hemorrhage: No intraparenchymal hemorrhage or extra-axial hematoma. Brain parenchyma: Cortical templeton-white matter differentiation is preserved. No mass effect or midline shift. Basilar cisterns are patent. Ventricular system: Ventricles and sulci are patent and symmetric. Calvarium: Intact. Sinuses and mastoid air cells: Mucosal retention cyst versus in the right maxillary sinus. IMPRESSION: No acute intracranial process.
--- NOTE | 2018-12-12 19:40 | HP ---
CHIEF COMPLAINT: Chest pain, back pain, right-sided arm numbness, and facial numbness. HISTORY OF PRESENT ILLNESS: The patient is a 33-year-old male with past medical history significant for untreated type 2 diabetes mellitus, who presented to the hospital with complaints of chest pain and back pain. 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 He went home and was watching TV, when he started experiencing some chest pain that he described as squeezing, sharp and stabbing that radiated to the back. It seems to be worse with movement. He went to bed, he took a Tylenol No. 3, he slept through the night, but then began experiencing the same symptoms and so presented to the emergency department for further workup and treatment. As mentioned, the pain is nonexertional, seems to be reproducible even as he is tender to palpation on the front of the chest upon my exam. In the emergency department, he did undergo a chest x-ray, which showed hyperinflated lungs without evidence for acute cardiopulmonary process. He also underwent CT with dissection protocol, which was normal. Vital signs were all normal. His EKG showed normal sinus rhythm with no acute ST or T-wave changes. In the emergency department, the patient was given ketamine, aspirin, morphine, GI cocktail, Bentyl, Benadryl as well as Toradol. The patient continues to complain of intractable pain. Upon my interview with the patient, the patient seems to be shaking and complains of feeling cold, although he is afebrile. He is lying on his side and states that if he rolls to his back, his chest pain seems to get worse as it is worsened by movements. He denies any nausea or vomiting. He denies any shortness of breath. He complains that his right arm feels cold. The patient apparently has had a recent workup at [facility], and we will obtain those records. REVIEW OF SYSTEMS: Negative except that stated above. PAST MEDICAL HISTORY: Type 2 diabetes mellitus, untreated. He had an admission in May of last year at this facility with sepsis from community-acquired pneumonia. PAST SURGICAL HISTORY: Vasectomy. ALLERGIES: BACTRIM. HOME MEDICATIONS: Tylenol No. 3. SOCIAL HISTORY: The patient denies any alcohol or drug use. He does smoke one pack per day of cigarettes. The patient is and has 4 small boys, the youngest who is 6 months old and has multiple heart murmurs according to his , requiring repeat hospitalizations and blood transfusions in [place]. The patient has been under stress at home as he is the sole provider and caregiver for the other 3 young boys. PHYSICAL EXAMINATION: VITAL SIGNS: Blood pressure is 101/57, pulse is 64, respirations are 15, O2 saturation is 97% on room air. GENERAL: The patient is lying on his side and appears to be in distress with what appears to be intentional shaking. HEENT: Head is atraumatic and normocephalic. Mucous membranes are moist. NECK: Trachea is midline. No JVD. CV: S1 and S2. Regular rate and rhythm. No appreciable murmurs, rubs, or gallops. LUNGS: Regular respiratory rate and pattern, overall clear to auscultation bilaterally. ABDOMEN: Positive bowel sounds. Soft and nontender. MUSCULOSKELETAL: The patient has no gross deformities. When I laid my stethoscope on his chest gently, he reacts fairly violently as if he is in pain. NEUROLOGIC: Cranial nerves 2 through 12 were grossly intact. The patient is nonfocal. SKIN: Warm and dry. Multiple tattoos noted over his body. LABORATORY DATA: White blood cell count 11.1, hemoglobin 16.4, hematocrit 46.6, platelet count 307. Chemistry: Sodium 135, potassium 4.2, anion gap is 15, BUN is 9, creatinine is 0.85, glucose 215. AST, ALT, and alkaline phosphatase are all within normal limits. Creatine kinase is 124. His troponin is negative x2. Lipase is negative at 24. ASSESSMENT: 1. Atypical chest and body pain along with complaints of right facial numbness and right arm "coldness." His workup is negative at this time, and I suspect possible conversion disorder from underlying social anxiety and stress. 2. Untreated type 2 diabetes mellitus. PLAN: At this time, due to the patient's intractable pain, we will admit the patient for observation. I will go ahead and order a CT of his brain as well as a treadmill stress test. We will obtain records from [facility]. I will order some anti-anxiolytics with Atarax. DVT and GI prophylaxis have been ordered. We will obtain urine and blood toxicology screens. Further recommendations based on hospital course. Job ID: [id number]
[2018-12-12 21:04] VITALS: BMI 29.5
[2018-12-13] MEDS: Famotidine 20 MG TAB PO SCH ×2 (00:21→09:32)
[2018-12-13] MEDS: Ondansetron PF 4 MG/2 ML Vial IVP PRN ×2 (04:58→11:18)
[2018-12-13 05:55] LABS: Amphetamine Not Detected (NotDetected); Barbiturates Screen Not Detected (NotDetected); Benzodiazepine Screen Not Detected (NotDetected); Cocaine Metabolite Screen Not Detected (NotDetected); Medtox Reader # READER 4; Methadone Not Detected (NotDetected); Methamphetamine Not Detected (NotDetected); Opiate Screen Detected (NotDetected); Oxycodone Screen Not Detected (NotDetected); Phencyclidine (PCP) Not Detected (NotDetected); THC/Cannabinoid Screen Not Detected (NotDetected); Tricyclic Screen Not Detected (NotDetected)
[2018-12-13 05:56] LABS: Medtox Control Line Valid? VALID (VALID)
[2018-12-13 06:14] LABS: #Basophils 0.1 thou/uL (0.0-0.2); #Lymphocytes 2.7 thou/uL (1.20-3.40); #Monocytes 0.7 thou/uL (0.11-0.59); #Neutrophils 6.4 thou/uL (1.40-6.50); %Basophils 0.7 % (0.0-1.0); %Eosinophils 0.2 % (0.0-10.0); %Lymphocytes 27.6 % (21.0-51.0); %Monocytes 7.1 % (0.0-10.0); %Neutrophils 64.4 % (42.0-75.0); Hemoglobin 15.3 g/dL (14.0-18.0); Mean Corpuscular HGB CONC 34.8 g/dL (32.0-36.0); Mean Corpuscular Hemoglobin 29.7 pg (27.0-31.0); Mean Corpuscular Volume 85.2 fL (78.0-98.0); Mean Platelet Volume 6.4 fL (7.4-10.4); Platelet Count 267 thou/uL (130-400); RBC Distribution Width 11.6 % (11.5-14.5); Red Blood Cell (RBC) Count 5.17 mill/uL (4.70-6.10); White Blood Cell (WBC) Count 9.9 thou/uL (4.8-10.8)
[2018-12-13 06:20] LABS: Hemoglobin A1c 9.9 % (4.0-6.0)
[2018-12-13 06:32] LABS: Anion Gap 12 mmol/L (10-20); BUN (Urea Nitrogen) 10 mg/dL (8.9-20.6); Calc. Creatinine Clearance 161 mL/min (70-130); Carbon Dioxide 24 mmol/L (22-29); Chloride 103 mmol/L (98-107); Estimated GFR-MDRD Greater than 90; Glucose 130 mg/dL (70-105); Potassium 3.8 mmol/L (3.5-5.1); Sodium 135 mmol/L (136-145)
[2018-12-13 07:33] LABS: Troponin I Less than 0.010 ng/mL (< 0.028)
[2018-12-13] MEDS ORDERED: Lorazepam 2 MG/ML VIAL SLOW IVP SCH (09:15)
[2018-12-13] MEDS: HYDROcodone/Acetaminophen 5/325 mg Tablet PO PRN ×2 (09:31→13:24)
--- NOTE | 2018-12-13 10:27 | MRI ---
Exam: Brain MRI without contrast HISTORY: Right upper extremity weakness. Tingling. COMPARISON: None FINDINGS: Calvarial marrow signal intensity: Appropriate T1 signal Gradient echo sequence: No hemorrhage Brain parenchyma: No mass, mass effect or midline shift. Brain volume, age-appropriate. Cortical templeton-white matter differentiation: Preserved Restricted diffusion: Central arterial flow voids are maintained. Absent restricted diffusion White matter signal intensities:Scattered T2 and FLAIR white matter hyperintensities are nonspecific. Sinuses: Mucous retention cyst in the right maxillary sinus. Mild mucosal thickening involving the ri ght sphenoid sinus, left ethmoid air cells, and frontal sinus. IMPRESSION: 1. Absent restricted diffusion. No acute infarct. 2. Nonspecific scattered white matter hyperintensities. Findings may be on the basis of a demyelinati ng process, other than multiple sclerosis, changes from vasculitis, changes from Lyme disease, changes from migraine headaches. Transcribed Date/Time: 12/13/2018 10:58 AM
--- NOTE | 2018-12-13 13:18 | MRI ---
MRI BRAIN WITH CONTRAST: HISTORY: Abnormal noncontrast brain MRI. COMPARISON: None. FINDINGS: Post contrast images do not demonstrate any pathologic enhancement of the brain parenchyma. There is no evidence of enhancement with regard to the nonspecific T2 and FLAIR white matter hyperintensities noted on the noncontrast exam. IMPRESSION: Unremarkable post contrast brain MRI. POS: [facility]
--- NOTE | 2018-12-13 13:21 | MRI ---
MRI CERVICAL SPINE WITHOUT CONTRAST: HISTORY: Right-sided weakness. COMPARISON: None. FINDINGS: Appropriate T1 marrow signal intensity of the cervical vertebrae. Cervical spine vertebral body heig ht is maintained. No fracture. No significant STIR hyperintensity to suggest vertebral body edema o r ligamentous injury. The visualized brain parenchyma, cervicomedullary junction, cervical cord, and upper thoracic cord dash ve a normal size and signal intensity. C2-C3: No significant central canal stenosis or foraminal narrowing. C3-C4: No significant central canal stenosis or foraminal narrowing. C4-C5: No significant central canal stenosis or foraminal narrowing. C5-C6: No significant central canal stenosis or foraminal narrowing. C6-C7: No significant central canal stenosis or foraminal narrowing. IMPRESSION: No significant central canal stenosis or foraminal narrowing. POS: [facility]
--- NOTE | 2018-12-13 14:30 | MRI ---
MRI THORACIC SPINE WITHOUT CONTRAST: HISTORY: Right arm and leg weakness. Muscle tenderness. COMPARISON: None. FINDINGS: Appropriate T1 marrow signal intensity of the thoracic vertebrae. Vertebral body height is maintaine d. No fracture. No significant STIR hyperintensity to suggest vertebral body edema or ligamentous i njury. The visualized mediastinal structures, lung parenchyma, and solid organs are unremarkable. No paraspinal mass, lymphadenopathy, or hematoma. The thoracic cord has a normal size and signal intensity. No cord expansion. No cord malacia. The conus medullaris terminates at the mid L1 level. The neural foramina are patent throughout the thoracic spine. T7-T8: Central disk protrusion causing mass effect upon the thecal sac and the left aspect of the th oracic cord, along with mass effect and deformity of the thoracic cord. Mild central canal stenosis. No cord signal abnormality. The remainder of the central spinal canal is patent. 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 POS: SURES[facility]
[2018-12-13 15:22] VITALS: BP 109/55; TEMP 97.9
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
[2018-12-13] MEDS ORDERED: Methocarbamol 1 GM in Sodium Chloride 0.9% 100 ML IVPB SCH (22:00)
--- NOTE | 2018-12-13 22:49 | DIS ---
DATE OF ADMISSION: 12/12/2018 DATE OF DISCHARGE: 12/13/2018 CHIEF COMPLAINT: Chest pain, back pain, right-sided arm numbness and facial numbness. DISCHARGE DIAGNOSES: 1. Atypical chest and body pain along with complaints of right facial numbness and right arm weakness, consistent with conversion disorder, symptoms currently resolved. 2. Uncontrolled and untreated type 2 diabetes mellitus with hemoglobin A1c 9.9%. 3. 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 BRIEF HOSPITAL COURSE: The patient is a 33-year-old male with past medical history significant for untreated type 2 by diabetes mellitus, who presented to the hospital with complaints of chest pain and back pain. 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 He went home and was watching TV when he began experiencing chest pain that he described as squeezing, sharp and stabbing with radiation to the back, seemed to be worse with movement. He took a Tylenol No. 3 and slept through the night, but then began experiencing the same symptoms, so presented to the emergency department for further workup and treatment. His pain is totally nonexertional, seems to be reproducible even as to the tender palpation or light placement of stethoscope on chest, where the patient did react fairly violently. He was treated in the emergency department for pain throughout the day. He received aspirin, morphine, GI cocktail, Bentyl, Benadryl as well as Toradol. He was given ketamine as well. His EKG showed normal sinus rhythm and was normal. He had no evidence of ACS as troponins were negative. Due to the fact that his pain was unable to be controlled in the emergency department, he was admitted to the observation unit. The patient did sleep through the night without complaints of any pain, however, when he awoke, he was concerned that he had some weakness in his right arm and finger grasp. Given his continued symptoms, MRI of the brain was done initially without contrast, which showed nonspecific scattered white matter hyperintensities, findings consistent with demyelinating process other than multiple sclerosis changes from vasculitis or changes from Lyme disease, or migraine headaches. Given the MRI findings, Dr. Mo was consulted, who ordered MRI of the brain with contrast, which was normal. He ordered a cervical spine MRI, which was also normal. He did order a thoracic spine MRI, which showed the only anatomical abnormality being T7 to T8 degenerative changes with mass effect upon the central aspect of the cord, although there was no evidence of cord hyperintensity. The patient's symptoms completely resolved throughout the day, and he has no complaints at this time. He is resting comfortably. He says he is much better. His is at the bedside. DISCHARGE DISPOSITION: Home. DISCHARGE CONDITION: Stable. DISCHARGE MEDICATIONS: 1. Glipizide 5 mg p.o. b.i.d. 2. Lisinopril 2.5 mg daily. 3. Atorvastatin 10 mg p.o. at bedtime. DISCHARGE INSTRUCTIONS AND FOLLOWUP: Given the incidental finding on the MRI report, he will need outpatient neuro surgery evaluation. His providers are at [facility], and this will be set up at that facility. He does not see a PCP regularly, and I have encouraged him strongly. I have prescribed the above medications for him, along with extensive counseling on hypoglycemia, hyperglycemia. I have consulted the dietitian who has also seen the patient. I have discussed this case with Dr. Levine who has reviewed imaging reports and agree with discharge and outpatient followup as all of his symptoms have resolved. He has no symptoms from the incidental finding of T7-T8 degenerative disk change, and so this will be worked up as an outpatient. I have counseled him extensively on controlling his diabetes and the repercussions of medication noncompliance. Job ID: [id number]
== END 2018-12-13 17:59 | disposition home or self-care (01) ==
LOC: ERS 07:18 → 2SW 20:39
PROVIDERS: ADMIT Internal Medicine; ATTEND Internal Medicine
DX: R07.89 Other chest pain (principal); M79.10 Myalgia, unspecified site; R20.0 Anesthesia of skin; R53.1 Weakness; E11.9 Type 2 diabetes mellitus without complications; M51.34 Other intervertebral disc degeneration, thoracic region; F17.210 Nicotine dependence, cigarettes, uncomplicated; Z88.1 Allergy status to other antibiotic agents; Z88.2 Allergy status to sulfonamides
CPT/HCPCS: 36415; 36416; 70450; 70551; 70552; 71045; 71275; 72141; 72146; 80048; 80053; 80306; 80307; 82550; 83036; 83690; 84484; 85025; 93005; 96361; 96365; 96375; 96376; G0378; J1885; J2060; J2270; J2405; J2800; J3490; Q0163; Q9966

== ENCOUNTER 2019-06-03 06:47 | Emergency (ER) | payer OTHER, SELFPAY ==
[2019-06-03 07:10] LABS: #Monocytes 0.5 thou/uL (0.11-0.59); #Neutrophils 3.8 thou/uL (1.40-6.50); %Basophils 0.4 % (0.0-1.0); %Eosinophils 0.3 % (0.0-10.0); %Lymphocytes 31.3 % (21.0-51.0); %Monocytes 7.3 % (0.0-10.0); %Neutrophils 60.5 % (42.0-75.0); Hemoglobin 17.3 g/dL (14.0-18.0); Mean Corpuscular HGB CONC 32.4 g/dL (32.0-36.0); Mean Corpuscular Hemoglobin 27.5 pg (27.0-31.0); Mean Corpuscular Volume 84.7 fL (78.0-98.0); Platelet Count 180 thou/uL (130-400); RBC Distribution Width 11.5 % (11.5-14.5); Red Blood Cell (RBC) Count 6.31 mill/uL (4.70-6.10); White Blood Cell (WBC) Count 6.3 thou/uL (4.8-10.8)
[2019-06-03] MEDS ORDERED: Pantoprazole 40 MG VIAL ONE (07:14)
[2019-06-03] MEDS ORDERED: Ondansetron PF 4 MG/2 ML Vial ONE (07:14)
[2019-06-03] MEDS ORDERED: Ketorolac Tromethamine 30 MG/ML VIAL ONE (07:14)
[2019-06-03 07:25] LABS: ALT (SGPT) 56 U/L (8-55); AST (SGOT) 38 U/L (5-34); Albumin 4.3 g/dL (3.5-5.0); Alkaline Phosphatase 119 U/L (40-110); Anion Gap 14 mmol/L (10-20); BUN (Urea Nitrogen) 8 mg/dL (8.9-20.6); Bilirubin, Total 0.6 mg/dL (0.2-1.2); Calc. Creatinine Clearance 0 mL/min (70-130); Calcium 8.9 mg/dL (7.8-10.44); Carbon Dioxide 24 mmol/L (22-29); Chloride 100 mmol/L (98-107); Estimated GFR-MDRD Greater than 90; Globulin 3.3 g/dL (2.4-3.5); Glucose 223 mg/dL (70-105); Potassium 4.1 mmol/L (3.5-5.1); Protein, Total 7.6 g/dL (6.0-8.3); Sodium 134 mmol/L (136-145)
--- NOTE | 2019-06-03 08:03 | RAD ---
RADIOGRAPH CHEST 1 VIEW: DATE: 06/03/2019 HISTORY: 34-year-old male with acute chest pain FINDINGS: There are no airspace densities, pulmonary edema, pneumothorax, or cardiomegaly. The lateral costophr enic angles are sharp. IMPRESSION: No acute cardiopulmonary findings.
--- NOTE | 2019-06-03 09:16 | ULT ---
RIGHT UPPER QUADRANT GALLBLADDER ULTRASOUND: HISTORY: Right upper quadrant pain. COMPARISON: None. TECHNIQUE: Real-time, templeton-scale and color evaluation of the right upper quadrant of the abdomen was performed. FINDINGS: The visualized portion of the aorta, IVC and pancreas is unremarkable. The portal vein has patent ant egrade flow. The common bile duct measures 4 mm, normal. Diffuse increased hepatic echotexture. The liver measures 15.7 cm in length without mass. The right kidney measures 10.4 x 5.1 x 5.1 cm without mass, hydronephrosis or abnormal calcifications . Sonographic Clarke sign is negative. The gallbladder is normal. No cholelithiasis. No pericholecystic fluid. IMPRESSION: 1. No cholelithiasis or cholecystitis. 2. Diffuse increased hepatic echotexture, suggesting steatosis. POS: [facility]
== END 2019-06-03 08:30 | disposition home or self-care (01) ==
LOC: ERS 06:47
DX: R10.13 Epigastric pain (principal); E11.9 Type 2 diabetes mellitus without complications; F17.210 Nicotine dependence, cigarettes, uncomplicated
CPT/HCPCS: 71045; 76705; 80053; 83690; 84484; 85025; 93005; 96361; 96374; 96375; C9113; J1885; J2405

== ENCOUNTER 2020-02-16 14:24 | Emergency (ER) | payer OTHER ==
[2020-02-17 11:56] LABS: SARS-CoV-2 MS2 Positive; SARS-CoV-2 N Gene Negative; SARS-CoV-2 S Gene Negative; SARS-CoV-2 by NAA Not Detected (NotDetected); SARS-CoV-2 orf1ab Negative
== END 2020-02-16 15:25 | disposition home or self-care (01) ==
LOC: ERS 14:24
DX: R05 Cough (principal); R50.9 Fever, unspecified; R09.81 Nasal congestion; Z20.828 Contact with and (suspected) exposure to other viral communicable diseases; F17.210 Nicotine dependence, cigarettes, uncomplicated
CPT/HCPCS: 87635; 99283; U0003

== ENCOUNTER 2020-10-15 11:50 | Emergency (ER) | payer OTHER, SELFPAY ==
[~2020-10-15 11:50] MED LIST changes: -ISOVUE-370 76%-LOCM 1 ML ONE; +Iopamidol-370 76% 500 ML 1 ML ONE
[2020-10-15] MEDS ORDERED: Ondansetron PF 4 MG/2 ML Vial ONE (12:32)
[2020-10-15] MEDS ORDERED: Morphine 4 MG/ML VIAL ONE (12:32)
[2020-10-15 12:59] LABS: #Basophils 0.1 thou/uL (0.0-0.2); #Eosinphils 0.1 thou/uL (0.0-0.7); #Lymphocytes 1.9 thou/uL (1.20-3.40); #Monocytes 0.7 thou/uL (0.11-0.59); #Neutrophils 4.7 thou/uL (1.40-6.50); %Basophils 1.3 % (0.0-1.0); %Eosinophils 0.8 % (0.0-10.0); %Lymphocytes 25.9 % (21.0-51.0); Hemoglobin 16.5 g/dL (14.0-18.0); Mean Corpuscular HGB CONC 34.2 g/dL (32.0-36.0); Mean Corpuscular Hemoglobin 29.7 pg (27.0-31.0); Mean Corpuscular Volume 86.8 fL (78.0-98.0); Mean Platelet Volume 6.7 fL (7.4-10.4); Platelet Count 237 thou/uL (130-400); RBC Distribution Width 11.6 % (11.5-14.5); Red Blood Cell (RBC) Count 5.55 mill/uL (4.70-6.10); White Blood Cell (WBC) Count 7.5 thou/uL (4.8-10.8)
[2020-10-15 13:21] LABS: ALT (SGPT) 31 U/L (8-55); AST (SGOT) 27 U/L (5-34); Alkaline Phosphatase 132 U/L (40-110); Anion Gap 12 mmol/L (10-20); BUN (Urea Nitrogen) 7 mg/dL (8.9-20.6); Bilirubin, Total 0.5 mg/dL (0.2-1.2); CK (CPK) 67 U/L (30-200); Calc. Creatinine Clearance 0 mL/min (70-130); Calcium 8.8 mg/dL (7.8-10.44); Carbon Dioxide 23 mmol/L (22-29); Chloride 103 mmol/L (98-107); Globulin 2.8 g/dL (2.4-3.5); Glucose 200 mg/dL (70-105); Lipase 16 U/L (8-78); Potassium 3.7 mmol/L (3.5-5.1); Protein, Total 6.8 g/dL (6.0-8.3); Sodium 134 mmol/L (136-145)
[2020-10-15 13:31] LABS: SARS-CoV-2 NAA Rapid Test Not Detected (NotDetected)
== END 2020-10-15 14:05 | disposition home or self-care (01) ==
LOC: ERS 11:50
DX: R10.84 Generalized abdominal pain (principal); R19.7 Diarrhea, unspecified; R50.9 Fever, unspecified; R63.0 Anorexia; R11.10 Vomiting, unspecified; F17.210 Nicotine dependence, cigarettes, uncomplicated
CPT/HCPCS: 0240U; 71045; 74177; 80053; 82550; 83690; 84484; 85025; 93005; 96374; 96375; J2270; J2405; Q9967

== ENCOUNTER 2021-04-26 07:12 | Emergency (ER) | payer SELFPAY ==
[2021-04-26 07:38] LABS: #Eosinphils 0.1 thou/uL (0.0-0.7); #Lymphocytes 2.3 thou/uL (1.20-3.40); #Monocytes 0.4 thou/uL (0.11-0.59); #Neutrophils 4.4 thou/uL (1.40-6.50); %Basophils 0.6 % (0.0-1.0); %Eosinophils 1.3 % (0.0-10.0); %Lymphocytes 32.3 % (21.0-51.0); %Monocytes 5.6 % (0.0-10.0); %Neutrophils 60.2 % (42.0-75.0); Hemoglobin 17.3 g/dL (14.0-18.0); Mean Corpuscular HGB CONC 35.9 g/dL (32.0-36.0); Mean Corpuscular Hemoglobin 31.5 pg (27.0-31.0); Mean Corpuscular Volume 87.7 fL (78.0-98.0); Mean Platelet Volume 6.4 fL (7.4-10.4); Platelet Count 312 thou/uL (130-400); RBC Distribution Width 11.4 % (11.5-14.5); White Blood Cell (WBC) Count 7.2 thou/uL (4.8-10.8)
[2021-04-26 08:06] LABS: ALT (SGPT) 26 U/L (8-55); AST (SGOT) 20 U/L (5-34); Albumin 4.2 g/dL (3.5-5.0); Alkaline Phosphatase 143 U/L (40-110); Anion Gap 14 mmol/L (10-20); BUN (Urea Nitrogen) 8 mg/dL (8.9-20.6); Bilirubin, Total 0.4 mg/dL (0.2-1.2); Calc. Creatinine Clearance 0 mL/min (70-130); Calcium 9.2 mg/dL (7.8-10.44); Carbon Dioxide 21 mmol/L (22-29); Chloride 104 mmol/L (98-107); Globulin 3.4 g/dL (2.4-3.5); Glucose 336 mg/dL (70-105); Lipase 29 U/L (8-78); Potassium 4.1 mmol/L (3.5-5.1); Protein, Total 7.6 g/dL (6.0-8.3); Sodium 135 mmol/L (136-145)
[2021-04-26] MEDS ORDERED: Ketorolac Tromethamine 30 MG/ML VIAL ONE (08:35)
[2021-04-26] MEDS ORDERED: Ondansetron PF 4 MG/2 ML Vial ONE (08:35)
[2021-04-26] MEDS ORDERED: Famotidine/PF 20 mg/2ml Vial ONE (08:35)
[2021-04-26 09:11] LABS: Actual Bicarbonate (HCO3v) 22 mEq/L (22-28); Analyzer IN Cardio ER; Base Excess -3.6 mEq/L (-2.0 to +3.0); Calcium, Ionized (venous) 1.07 mmol/L (1.16-1.32); Chloride (VBG) 103 mmol/L (98-106); Potassium (VBG) 4.08 mmol/L (3.70-5.30); Sodium 135.2 mmol/L (133-146); pH (venous) 7.34 (7.32-7.43)
[2021-04-26] MEDS ORDERED: Iopamidol-370 76% 500 ML 1 ML ONE (11:16)
== END 2021-04-26 10:09 | disposition home or self-care (01) ==
LOC: ERS 07:12
DX: E11.9 Type 2 diabetes mellitus without complications (principal); R10.13 Epigastric pain; F17.210 Nicotine dependence, cigarettes, uncomplicated
CPT/HCPCS: 36415; 74177; 80053; 82010; 82805; 83690; 84484; 85025; 93005; 96372; 96374; 96375; J0500; J1885; J2405; Q9967; S0028

== ENCOUNTER 2022-06-06 12:56 | Emergency (ER) | payer SELFPAY | END 2022-06-06 13:53 | disposition home or self-care (01) | LOC: ERS 12:56 | DX: K04.7 Periapical abscess without sinus (principal); F17.210 Nicotine dependence, cigarettes, uncomplicated | CPT/HCPCS: 99282 ==

== ENCOUNTER 2022-07-01 14:49 | Observation (INO) | payer BC, SELFPAY ==
[2022-07-01 15:53] LABS: #Basophils 0.1 thou/uL (0.0-0.2); #Lymphocytes 1.7 thou/uL (1.20-3.40); #Monocytes 0.5 thou/uL (0.11-0.59); #Neutrophils 12.1 thou/uL (1.40-6.50); %Basophils 0.4 % (0.0-1.0); %Eosinophils 0.3 % (0.0-10.0); %Monocytes 3.3 % (0.0-10.0); %Neutrophils 83.9 % (42.0-75.0); Hemoglobin 16.1 g/dL (14.0-18.0); Mean Corpuscular HGB CONC 35.7 g/dL (32.0-36.0); Mean Corpuscular Hemoglobin 31.2 pg (27.0-31.0); Mean Corpuscular Volume 87.4 fl (78.0-98.0); Mean Platelet Volume 6.9 fL (7.4-10.4); Platelet Count 345 10x3/uL (130-400); RBC Distribution Width 11.5 % (11.5-14.5); Red Blood Cell (RBC) Count 5.18 mill/uL (4.70-6.10); White Blood Cell (WBC) Count 14.4 10x3/uL (4.8-10.8)
[2022-07-01 16:14] LABS: ALT (SGPT) 19 U/L (8-55); AST (SGOT) 17 U/L (5-34); Albumin 4.5 g/dL (3.5-5.0); Alkaline Phosphatase 160 U/L (40-110); Anion Gap 16 mmol/L (10-20); BUN (Urea Nitrogen) 10 mg/dL (8.9-20.6); Bilirubin, Total 0.3 mg/dL (0.2-1.2); Calc. Creatinine Clearance 0 mL/min (70-130); Calcium 9.8 mg/dL (7.8-10.44); Carbon Dioxide 20 mmol/L (22-29); Chloride 101 mmol/L (98-107); Estimated GFR 111; Globulin 3.2 g/dL (2.4-3.5); Lipase 13 U/L (8-78); Potassium 4.4 mmol/L (3.5-5.1); Protein, Total 7.7 g/dL (6.0-8.3); Sodium 133 mmol/L (136-145)
[2022-07-01 16:16] LABS: Glucose 400 mg/dL (70-105)
[2022-07-01] MEDS ORDERED: Ondansetron PF 4 MG/2 ML Vial ONE ×2 (17:07)
[2022-07-01] MEDS ORDERED: Morphine 4 MG/ML VIAL ONE (17:31)
[2022-07-01 18:22] LABS: Bilirubin Negative (Negative); Blood, Urine Negative (Negative); Clarity Clear (Clear); Glucose, Urine (Dipstick) Greater than 1000 mg/dL (Negative); Ketone, Urine Trace mg/dL (Negative); Leukocyte Negative Leu/uL (Negative); Nitrite Negative (Negative); Protein, Urine (Dipstick) Negative (Neg-Trace); Specific Gravity, Urine 1.043 (1.002-1.036); Urobilinogen Normal mg/dL (Less than 2)
[2022-07-01] MEDS ORDERED: Fleet Enema 133 ML BOT PR SCH (18:30)
[2022-07-01] MEDS ORDERED: Fentanyl 100 MCG/2 ML VIAL ONE (18:42)
[2022-07-01 18:59] LABS: Lactic Acid 1.9 mmol/L (0.5-2.2)
[2022-07-02] MEDS ORDERED: Acetaminophen 325 MG TAB PO PRN (00:02)
[2022-07-02] MEDS ORDERED: HYDROcodone/Acetaminophen 5/325 mg Tablet PO PRN (00:02)
[2022-07-02] MEDS ORDERED: Sodium Chloride 0.9% 1,000 ML IV SCH (00:15)
[2022-07-02] MEDS ORDERED: Acetaminophen 500 MG TAB PO PRN (00:40)
[2022-07-02] MEDS ORDERED: Bisacodyl 5 MG TAB PO PRN (00:41)
[2022-07-02] MEDS ORDERED: HumaLOG 300 UNITS/3 ML VIAL SC PRN ×2 (00:45)
[2022-07-02] MEDS ORDERED: Dextrose 50% Abboject 50 ML SYRINGE SLOW IVP PRN (00:45)
[2022-07-02] MEDS ORDERED: Dextrose 5% in Water 1,000 ML IV PRN (00:45)
[2022-07-02] MEDS ORDERED: Ondansetron PF 4 MG/2 ML Vial IVP SCH (00:45)
[2022-07-02] MEDS ORDERED: Piperacillin/Tazobactam 3.375 GM in Sodium Chloride 0.9% 100 ML IVPB SCH (01:00)
[2022-07-02] MEDS ORDERED: Polyethylene Glycol 3350 17 GM Packet PO SCH ×2 (01:00→09:00)
[2022-07-02] MEDS ORDERED: Ketorolac Tromethamine 30 MG/ML VIAL IVP SCH (01:15)
[2022-07-02 01:18] VITALS: BMI 26.6
[2022-07-02] MEDS: Sodium Chloride 0.9% 1,000 ML IV SCH ×4 (01:41→20:13)
[2022-07-02 02:35] LABS: #Basophils 0.1 thou/uL (0.0-0.2); #Eosinphils 0.1 thou/uL (0.0-0.7); #Lymphocytes 3.2 thou/uL (1.20-3.40); #Monocytes 0.7 thou/uL (0.11-0.59); #Neutrophils 10.5 thou/uL (1.40-6.50); %Basophils 0.4 % (0.0-1.0); %Eosinophils 0.4 % (0.0-10.0); %Lymphocytes 22.2 % (21.0-51.0); Hemoglobin 13.7 g/dL (14.0-18.0); Mean Corpuscular HGB CONC 33.6 g/dL (32.0-36.0); Mean Corpuscular Hemoglobin 29.8 pg (27.0-31.0); Mean Corpuscular Volume 88.5 fl (78.0-98.0); Mean Platelet Volume 6.8 fL (7.4-10.4); Platelet Count 289 10x3/uL (130-400); RBC Distribution Width 11.6 % (11.5-14.5); Red Blood Cell (RBC) Count 4.59 mill/uL (4.70-6.10); White Blood Cell (WBC) Count 14.5 10x3/uL (4.8-10.8)
[2022-07-02 03:32] LABS: Anion Gap 14 mmol/L (10-20); BUN (Urea Nitrogen) 9 mg/dL (8.9-20.6); Calc. Creatinine Clearance 152 mL/min (70-130); Calcium 8.6 mg/dL (7.8-10.44); Carbon Dioxide 22 mmol/L (22-29); Chloride 102 mmol/L (98-107); Estimated GFR 121; Glucose 224 mg/dL (70-105); Potassium 3.7 mmol/L (3.5-5.1); Sodium 134 mmol/L (136-145)
[2022-07-02] MEDS: Piperacillin/Tazobactam 3.375 GM in Sodium Chloride 0.9% 100 ML IVPB SCH ×3 (04:56→20:12)
[2022-07-02] MEDS: HumaLOG 300 UNITS/3 ML VIAL SC PRN ×3 (05:00→17:02)
[2022-07-02] MEDS: Ketorolac Tromethamine 30 MG/ML VIAL IVP SCH ×4 (05:00→23:44)
[2022-07-02] MEDS: Senokot S 8.6-50 MG TAB PO SCH ×2 (09:03→20:12)
[2022-07-02] MEDS: Polyethylene Glycol 3350 17 GM Packet PO SCH ×2 (09:03→20:12)
[2022-07-02] MEDS: traMADol HCl 50 MG TAB PO PRN ×2 (11:24→18:22)
[2022-07-02] MEDS ORDERED: Ondansetron PF 4 MG/2 ML Vial IVP PRN (11:28)
[2022-07-02] MEDS ORDERED: GoLYTELY 4,000 ml Bottle PO SCH (15:30)
[2022-07-02] MEDS ORDERED: Insulin Glargine 30 UNITS/0.3 ML VIAL SC SCH (21:00)
[2022-07-03] MEDS: Piperacillin/Tazobactam 3.375 GM in Sodium Chloride 0.9% 100 ML IVPB SCH (05:22)
[2022-07-03] MEDS: Ketorolac Tromethamine 30 MG/ML VIAL IVP SCH (05:22)
[2022-07-03] MEDS: Sodium Chloride 0.9% 1,000 ML IV SCH ×2 (05:27→08:34)
[2022-07-03] MEDS: HumaLOG 300 UNITS/3 ML VIAL SC PRN (06:15)
[2022-07-03 07:33] LABS: #Lymphocytes 2.6 thou/uL (1.20-3.40); #Monocytes 0.4 thou/uL (0.11-0.59); #Neutrophils 4.1 thou/uL (1.40-6.50); %Basophils 0.6 % (0.0-1.0); %Eosinophils 0.7 % (0.0-10.0); %Lymphocytes 36.4 % (21.0-51.0); %Monocytes 5.2 % (0.0-10.0); %Neutrophils 57.2 % (42.0-75.0); Hemoglobin 12.6 g/dL (14.0-18.0); Mean Corpuscular Hemoglobin 30.4 pg (27.0-31.0); Mean Corpuscular Volume 89.5 fl (78.0-98.0); Platelet Count 247 10x3/uL (130-400); RBC Distribution Width 11.6 % (11.5-14.5); Red Blood Cell (RBC) Count 4.14 mill/uL (4.70-6.10); White Blood Cell (WBC) Count 7.1 10x3/uL (4.8-10.8)
[2022-07-03 07:53] LABS: Anion Gap 10 mmol/L (10-20); BUN (Urea Nitrogen) 11 mg/dL (8.9-20.6); Calc. Creatinine Clearance 156 mL/min (70-130); Calcium 8.2 mg/dL (7.8-10.44); Carbon Dioxide 23 mmol/L (22-29); Chloride 107 mmol/L (98-107); Estimated GFR 122; Glucose 194 mg/dL (70-105); Potassium 3.6 mmol/L (3.5-5.1); Sodium 136 mmol/L (136-145)
[2022-07-03] MEDS: Senokot S 8.6-50 MG TAB PO SCH (08:33)
[2022-07-03] MEDS: Polyethylene Glycol 3350 17 GM Packet PO SCH (08:34)
[2022-07-03] MEDS ORDERED: Insulin Glargine 30 UNITS/0.3 ML VIAL SC SCH (09:00)
[2022-07-03 11:39] VITALS: BP 113/72; TEMP 98.1
== END 2022-07-03 11:48 | disposition home or self-care (01) ==
LOC: ERS 14:49 → T4-A 23:43
PROVIDERS: ADMIT Hospitalist; ATTEND Hospitalist
DX: A41.9 Sepsis, unspecified organism (principal); K52.89 Other specified noninfective gastroenteritis and colitis; K59.03 Drug induced constipation; T40.2X5A Adverse effect of other opioids, initial encounter; E11.65 Type 2 diabetes mellitus with hyperglycemia; E87.1 Hypo-osmolality and hyponatremia; F17.210 Nicotine dependence, cigarettes, uncomplicated; Z79.2 Long term (current) use of antibiotics; Z79.899 Other long term (current) drug therapy; Z88.2 Allergy status to sulfonamides; Z20.822 Contact with and (suspected) exposure to COVID-19
CPT/HCPCS: 36415; 36416; 74177; 80048; 80053; 81003; 82010; 82550; 83036; 83605; 83690; 84484; 85025; 93005; 96361; 96365; 96374; 96375; 96376; G0378; J1815; J1885; J2270; J2405; J2543; J3010; J3490; J7050; Q9967; U0003; U0005

== ENCOUNTER 2023-01-11 11:38 | Inpatient (IN) | payer BC, SELFPAY ==
[~2023-01-11 11:38] MED LIST changes: -Iopamidol-370 76% 500 ML 1 ML ONE; +Iopamidol-370 76% 500 ML MDV (1 ML CHARGE) ONE
[2023-01-11 12:26] LABS: #Monocytes 0.6 thou/uL (0.11-0.59); %Basophils 0.2 % (0.0-1.0); %Eosinophils 0.5 % (0.0-10.0); %Lymphocytes 17.6 % (21.0-51.0); %Monocytes 7.5 % (0.0-10.0); %Neutrophils 74.1 % (42.0-75.0); Hematocrit 46.4 % (42.0-52.0); Hemoglobin 16.1 g/dL (14.0-18.0); Mean Corpuscular HGB CONC 34.7 g/dL (32.0-36.0); Mean Corpuscular Hemoglobin 29.6 pg (27.0-31.0); Mean Corpuscular Volume 85.3 fl (78.0-98.0); Mean Platelet Volume 8.9 fL (7.4-10.4); Platelet Count 271 10x3/uL (130-400); RBC Distribution Width 12.4 % (11.5-14.5); Red Blood Cell (RBC) Count 5.44 mill/uL (4.70-6.10)
[2023-01-11 12:52] LABS: ALT (SGPT) 34 U/L (8-55); AST (SGOT) 25 U/L (5-34); Albumin 4.1 g/dL (3.5-5.0); Alkaline Phosphatase 103 U/L (40-110); Anion Gap 15 mmol/L (10-20); BUN (Urea Nitrogen) 9 mg/dL (8.9-20.6); Bilirubin, Total 0.6 mg/dL (0.2-1.2); Calc. Creatinine Clearance 0 mL/min (70-130); Calcium 9.2 mg/dL (7.8-10.44); Carbon Dioxide 24 mmol/L (22-29); Chloride 101 mmol/L (98-107); Estimated GFR 120; Globulin 2.8 g/dL (2.4-3.5); Glucose 203 mg/dL (70-105); Potassium 3.5 mmol/L (3.5-5.1); Protein, Total 6.9 g/dL (6.0-8.3); Sodium 136 mmol/L (136-145)
[2023-01-11 13:57] LABS: Bacteria/HPF None Seen HPF (None Seen); Bilirubin Negative (Negative); Blood, Urine Negative (Negative); CAUTI Indications for Culture Pelvic or flank pain; Clarity Clear (Clear); Glucose, Urine (Dipstick) Greater than 1000 mg/dL (Negative); Ketone, Urine 60 mg/dL (Negative); Leukocyte Negative Leu/uL (Negative); Nitrite Negative (Negative); Protein, Urine (Dipstick) 30 mg/dL (Neg-Trace); RBC/HPF 0-3 HPF (0-3); Squamous Epithelial None Seen HPF (0-3); Urobilinogen Normal mg/dL (Less than 2); WBC/HPF 0-3 HPF (0-3); pH, Urine 5.5 (5.0-9.0)
[2023-01-11 14:00] LABS: Urine Culture Reflex No No
[2023-01-11] MEDS ORDERED: Ketorolac Tromethamine 30 MG/ML VIAL ONE (14:35)
[2023-01-11] MEDS ORDERED: Bisacodyl 5 MG TAB PO PRN (17:43)
[2023-01-11] MEDS ORDERED: Senokot S 8.6-50 MG TAB PO PRN (17:43)
[2023-01-11] MEDS ORDERED: Ondansetron PF 4 MG/2 ML Vial IVP PRN (17:43)
[2023-01-11] MEDS ORDERED: Acetaminophen 325 MG TAB PO PRN (17:43)
[2023-01-11] MEDS ORDERED: Ondansetron ODT 4 MG TAB PO PRN (17:43)
[2023-01-11] MEDS ORDERED: Dextrose 50% Abboject 50 ML SYRINGE SLOW IVP PRN (18:01)
[2023-01-11] MEDS ORDERED: Dextrose 5% in Water 1,000 ML IV PRN (18:01)
[2023-01-11] MEDS ORDERED: Glucagon 1 MG/ML KIT IM PRN (18:01)
[2023-01-11] MEDS ORDERED: HumaLOG 300 UNITS/3 ML VIAL SC PRN ×2 (18:01)
[2023-01-11 20:10] VITALS: BMI 27.2
[2023-01-11] MEDS: Nicotine 14 MG PATCH TD SCH (20:17)
[2023-01-11] MEDS: Sodium Chloride 0.9% 1,000 ML IV SCH (20:17)
[2023-01-11] MEDS: Ketorolac Tromethamine 30 MG/ML VIAL IVP PRN (21:54)
[2023-01-12] MEDS: Ketorolac Tromethamine 30 MG/ML VIAL IVP PRN (04:47)
[2023-01-12 07:53] LABS: #Eosinphils 0.1 thou/uL (0.0-0.7); #Monocytes 0.5 thou/uL (0.11-0.59); %Basophils 0.3 % (0.0-1.0); %Eosinophils 1.6 % (0.0-10.0); %Lymphocytes 30.7 % (21.0-51.0); %Neutrophils 59.3 % (42.0-75.0); Hematocrit 42.4 % (42.0-52.0); Hemoglobin 14.5 g/dL (14.0-18.0); Mean Corpuscular HGB CONC 34.2 g/dL (32.0-36.0); Mean Corpuscular Hemoglobin 29.7 pg (27.0-31.0); Mean Corpuscular Volume 86.9 fl (78.0-98.0); Platelet Count 258 10x3/uL (130-400); RBC Distribution Width 12.5 % (11.5-14.5); Red Blood Cell (RBC) Count 4.88 mill/uL (4.70-6.10); White Blood Cell (WBC) Count 6.8 10x3/uL (4.8-10.8)
[2023-01-12 08:07] LABS: Anion Gap 9 mmol/L (10-20); BUN (Urea Nitrogen) 9 mg/dL (8.9-20.6); Calc. Creatinine Clearance 160 mL/min (70-130); Calcium 8.6 mg/dL (7.8-10.44); Carbon Dioxide 25 mmol/L (22-29); Chloride 107 mmol/L (98-107); Estimated GFR 122; Glucose 183 mg/dL (70-105); Potassium 3.7 mmol/L (3.5-5.1); Sodium 137 mmol/L (136-145)
[2023-01-12] MEDS: Sodium Chloride 0.9% 1,000 ML IV SCH (08:33)
[2023-01-12] MEDS ORDERED: Polyethylene Glycol 3350 17 GM Packet PO SCH (09:00)
[2023-01-12 09:24] LABS: Amphetamine Not Detected (NotDetected); Barbiturates Screen Not Detected (NotDetected); Benzodiazepine Screen Not Detected (NotDetected); Cocaine Metabolite Screen Not Detected (NotDetected); Methadone Not Detected (NotDetected); Methamphetamine Not Detected (NotDetected); Opiate Screen Detected (NotDetected); Oxycodone Screen Not Detected (NotDetected); Phencyclidine (PCP) Not Detected (NotDetected); THC/Cannabinoid Screen Not Detected (NotDetected); Tricyclic Screen Not Detected (NotDetected)
[2023-01-12] MEDS ORDERED: MD-Gastroview 120 ML BOT ONE (11:44)
[2023-01-12] MEDS ORDERED: Ketorolac Tromethamine 30 MG/ML VIAL IVP SCH (15:15)
[2023-01-12 15:59] LABS: #Eosinphils 0.1 thou/uL (0.0-0.7); #Monocytes 0.5 thou/uL (0.11-0.59); #Neutrophils 4.2 thou/uL (1.40-6.50); %Basophils 0.3 % (0.0-1.0); %Lymphocytes 30.1 % (21.0-51.0); %Monocytes 7.1 % (0.0-10.0); %Neutrophils 61.2 % (42.0-75.0); Mean Corpuscular HGB CONC 34.1 g/dL (32.0-36.0); Mean Corpuscular Hemoglobin 29.4 pg (27.0-31.0); Mean Corpuscular Volume 86.1 fl (78.0-98.0); Mean Platelet Volume 8.7 fL (7.4-10.4); Platelet Count 283 10x3/uL (130-400); RBC Distribution Width 12.3 % (11.5-14.5); Red Blood Cell (RBC) Count 5.11 mill/uL (4.70-6.10); White Blood Cell (WBC) Count 6.8 10x3/uL (4.8-10.8)
[2023-01-12 16:24] LABS: Anion Gap 11 mmol/L (10-20); BUN (Urea Nitrogen) 7 mg/dL (8.9-20.6); Calc. Creatinine Clearance 157 mL/min (70-130); Carbon Dioxide 23 mmol/L (22-29); Chloride 110 mmol/L (98-107); Estimated GFR 121; Glucose 141 mg/dL (70-105); Lipase 13 U/L (8-78); Potassium 3.8 mmol/L (3.5-5.1); Sodium 140 mmol/L (136-145)
[2023-01-12] MEDS ORDERED: HYDROmorphone 0.5 MG/0.5 ML SYRINGE ONE (16:51)
[2023-01-12] MEDS ORDERED: Midazolam HCl 2 mg/2 ml Vial ONE (16:51)
[2023-01-12] MEDS ORDERED: fentaNYL PF 100 MCG/2 ML SYRINGE ONE (16:51)
[2023-01-12] MEDS ORDERED: EPINEPHrine 1 MG/ML AMP ONE (17:00)
[2023-01-12] MEDS ORDERED: Bupivacaine PF 0.5% 30 ML VIAL ONE (17:00)
[2023-01-12] MEDS ORDERED: Sodium Chloride 0.9% 100 ML ONE (17:08)
[2023-01-12] MEDS ORDERED: Piperacillin/Tazobactam 3.375 GM VIAL ONE (17:08)
[2023-01-12] MEDS ORDERED: Succinylcholine 200 MG/10 ml SYRINGE FS ONE (17:25)
[2023-01-12] MEDS ORDERED: Dexamethasone 20 MG/5 ML VIAL ONE (17:25)
[2023-01-12] MEDS ORDERED: Rocuronium Bromide 10 MG/ML (10ML VIAL) ONE (17:25)
[2023-01-12] MEDS ORDERED: PROPOFOL 200 MG/20 ML VIAL ONE (17:25)
[2023-01-12] MEDS ORDERED: Ondansetron PF 4 MG/2 ML Vial ONE (17:25)
[2023-01-12] MEDS ORDERED: Lidocaine 1% PF 5 ML VIAL ONE (17:25)
[2023-01-12] MEDS ORDERED: SUGAMMADEX SODIUM 200 MG/2 ML VIAL ONE (17:50)
[2023-01-12] MEDS ORDERED: Morphine 4 MG/ML VIAL SLOW IVP PRN (18:22)
[2023-01-12] MEDS ORDERED: fentaNYL 50 mcg/mL 1 mL Vial ONE ×2 (18:51→19:02)
[2023-01-12] MEDS: Nicotine 14 MG PATCH TD SCH (20:11)
[2023-01-12] MEDS: 1/2 NS w/KCL 20 mEq 1,000 ML IV SCH (20:11)
[2023-01-12] MEDS: Ketorolac Tromethamine 30 MG/ML VIAL IVP SCH (23:58)
[2023-01-13] MEDS: 1/2 NS w/KCL 20 mEq 1,000 ML IV SCH ×3 (03:10→15:32)
[2023-01-13] MEDS: Ketorolac Tromethamine 30 MG/ML VIAL IVP SCH ×2 (05:17→13:28)
[2023-01-13] MEDS ORDERED: Pantoprazole 40 MG VIAL IVP SCH (09:00)
[2023-01-13 09:36] LABS: #Monocytes 0.6 thou/uL (0.11-0.59); #Neutrophils 5.8 thou/uL (1.40-6.50); %Basophils 0.2 % (0.0-1.0); %Lymphocytes 23.6 % (21.0-51.0); %Monocytes 7.1 % (0.0-10.0); %Neutrophils 68.9 % (42.0-75.0); Hematocrit 46.2 % (42.0-52.0); Hemoglobin 15.4 g/dL (14.0-18.0); Mean Corpuscular HGB CONC 33.3 g/dL (32.0-36.0); Mean Corpuscular Hemoglobin 29.6 pg (27.0-31.0); Mean Platelet Volume 9.1 fL (7.4-10.4); Platelet Count 294 10x3/uL (130-400); RBC Distribution Width 12.5 % (11.5-14.5); Red Blood Cell (RBC) Count 5.21 mill/uL (4.70-6.10); White Blood Cell (WBC) Count 8.5 10x3/uL (4.8-10.8)
[2023-01-13 09:43] LABS: Mean Corpuscular Volume 88.7 fl (78.0-98.0)
[2023-01-13 09:53] LABS: ALT (SGPT) 30 U/L (8-55); AST (SGOT) 21 U/L (5-34); Albumin 3.7 g/dL (3.5-5.0); Alkaline Phosphatase 84 U/L (40-110); Anion Gap 17 mmol/L (10-20); BUN (Urea Nitrogen) 8 mg/dL (8.9-20.6); Bilirubin, Total 0.4 mg/dL (0.2-1.2); Calc. Creatinine Clearance 141 mL/min (70-130); Calcium 8.8 mg/dL (7.8-10.44); Carbon Dioxide 18 mmol/L (22-29); Chloride 108 mmol/L (98-107); Estimated GFR 118; Globulin 2.4 g/dL (2.4-3.5); Glucose 120 mg/dL (70-105); Potassium 3.9 mmol/L (3.5-5.1); Protein, Total 6.1 g/dL (6.0-8.3); Sodium 139 mmol/L (136-145)
[2023-01-13 09:55] LABS: Hemoglobin A1c 9.5 % (4.0-6.0)
[2023-01-13] MEDS ORDERED: Acetaminophen 325 MG TAB PO PRN (10:00)
[2023-01-13] MEDS ORDERED: traMADol HCl 50 MG TAB PO PRN (15:57)
[2023-01-13] MEDS ORDERED: Ibuprofen 600 MG TAB PO PRN (15:57)
[2023-01-13] MEDS ORDERED: Acetaminophen 500 MG TAB PO SCH (16:00)
[2023-01-13] MEDS: Nicotine 14 MG PATCH TD SCH (21:38)
[2023-01-13] MEDS: Acetaminophen 500 MG TAB PO SCH (22:26)
[2023-01-13] MEDS: Polyethylene Glycol 3350 17 GM Packet PO SCH (22:55)
[2023-01-14] MEDS: Acetaminophen 500 MG TAB PO SCH ×2 (06:46→12:38)
[2023-01-14] MEDS ORDERED: Polyethylene Glycol 3350 17 GM Packet PO SCH (09:00)
[2023-01-14] MEDS ORDERED: Methylcellulose 500 MG TAB PO SCH (09:00)
[2023-01-14] MEDS: Polyethylene Glycol 3350 17 GM Packet PO SCH (09:22)
[2023-01-14] MEDS ORDERED: Senokot S 8.6-50 MG TAB PO SCH (11:30)
[2023-01-14 16:19] VITALS: BP 147/87; TEMP 98.1
== END 2023-01-14 16:22 | disposition home or self-care (01) | DRG 358 ==
LOC: ERS 11:38 → T4-B 20:04 → OBSVTOIN 01-12 15:54
PROVIDERS: ADMIT Family Medicine; ATTEND Internal Medicine
PROC: 0DJ00ZZ Inspection of Upper Intestinal Tract, Open Approach (ICD-10-PCS; principal; 2023-01-12)
DX: K31.89 Other diseases of stomach and duodenum (principal); E11.9 Type 2 diabetes mellitus without complications; Z79.82 Long term (current) use of aspirin; Z79.899 Other long term (current) drug therapy; F17.210 Nicotine dependence, cigarettes, uncomplicated; Z88.8 Allergy status to other drugs, medicaments and biological substances; Z88.2 Allergy status to sulfonamides; K59.03 Drug induced constipation; T40.2X5A Adverse effect of other opioids, initial encounter; K42.9 Umbilical hernia without obstruction or gangrene
CPT/HCPCS: 36415; 36416; 74018; 74022; 74177; 74250; 80048; 80053; 80306; 81001; 83036; 83605; 83690; 85025; 96361; 96374; 96376; C9113; G0378; J0171; J1100; J1170; J1650; J1885; J2250; J2405; J2543; J2704; J3010; J3480; J3490; J7050; Q9963; Q9967; S0020

== ENCOUNTER 2023-06-23 22:14 | Emergency (ER) | payer BC, SELFPAY ==
[2023-06-24 00:49] LABS: SARS-CoV-2 NAA Rapid Test Not Detected (NotDetected)
[2023-06-24 00:57] LABS: #Basophils 0.1 thou/uL (0.0-0.2); #Eosinphils 0.1 thou/uL (0.0-0.7); #Monocytes 0.6 thou/uL (0.11-0.59); #Neutrophils 4.9 thou/uL (1.40-6.50); %Basophils 0.6 % (0.0-1.0); %Eosinophils 1.8 % (0.0-10.0); %Lymphocytes 26.5 % (21.0-51.0); %Monocytes 7.6 % (0.0-10.0); %Neutrophils 63.2 % (42.0-75.0); Hematocrit 45.3 % (42.0-52.0); Mean Corpuscular HGB CONC 35.3 g/dL (32.0-36.0); Mean Corpuscular Hemoglobin 29.5 pg (27.0-31.0); Mean Corpuscular Volume 83.4 fl (78.0-98.0); Mean Platelet Volume 9.1 fL (7.4-10.4); Platelet Count 269 10x3/uL (130-400); RBC Distribution Width 11.9 % (11.5-14.5); Red Blood Cell (RBC) Count 5.43 mill/uL (4.70-6.10); White Blood Cell (WBC) Count 7.8 10x3/uL (4.8-10.8)
[2023-06-24 01:19] LABS: ALT (SGPT) 33 U/L (8-55); AST (SGOT) 23 U/L (5-34); Albumin 4.4 g/dL (3.5-5.0); Alkaline Phosphatase 154 U/L (40-110); Anion Gap 17 mmol/L (10-20); BUN (Urea Nitrogen) 8 mg/dL (8.9-20.6); Bilirubin, Total 0.5 mg/dL (0.2-1.2); Calc. Creatinine Clearance 0 mL/min (70-130); Calcium 9.7 mg/dL (7.8-10.44); Carbon Dioxide 20 mmol/L (22-29); Chloride 96 mmol/L (98-107); Estimated GFR 81; Potassium 3.8 mmol/L (3.5-5.1); Protein, Total 7.4 g/dL (6.0-8.3); Sodium 129 mmol/L (136-145)
[2023-06-24 01:23] LABS: Troponin I Less than 0.010 ng/mL (< 0.028)
[2023-06-24] MEDS ORDERED: Cefepime 2 GM VIAL ONE (01:34)
[2023-06-24] MEDS ORDERED: Sodium Chloride 0.9% 100 ML ONE (01:35)
[2023-06-24 01:43] LABS: Critical Call Chemistry ERS.DWZ@0143; Glucose 588 mg/dL (70-105)
[2023-06-24] MEDS ORDERED: Vancomycin 1 GM/200 ML (FROZEN) BAG ONE (02:15)
[2023-06-24 02:17] LABS: Bacteria/HPF None Seen HPF (None Seen); Bilirubin Negative (Negative); Blood, Urine Negative (Negative); CAUTI Indications for Culture Fever or rigors; Clarity Clear (Clear); Glucose, Urine (Dipstick) Greater than 1000 mg/dL (Negative); Ketone, Urine Negative (Negative); Leukocyte Negative Leu/uL (Negative); Nitrite Negative (Negative); Protein, Urine (Dipstick) Negative (Neg-Trace); RBC/HPF None Seen HPF (0-3); Specific Gravity, Urine 1.038 (1.002-1.036); Squamous Epithelial None Seen HPF (0-3); Urobilinogen Normal mg/dL (Less than 2); WBC/HPF 0-3 HPF (0-3)
[2023-06-24 02:17] LABS: Actual Bicarbonate (HCO3v) 19.4 mEq/L (22-28); Base Excess -5.4 mEq/L (-2.0 to +3.0); Calcium, Ionized (venous) 1.09 mmol/L (1.16-1.32); Chloride (VBG) 99 mmol/L (98-106); Hematocrit-VBG 43 % (42.0-52.0); Hemoglobin (Hb) 14.6 g/dL (13.2-17.3); Potassium (VBG) 3.57 mmol/L (3.70-5.30); Sodium 130 mmol/L (133-146); pH (venous) 7.351 (7.32-7.43)
[2023-06-24 02:22] LABS: Urine Culture Reflex No No
[2023-06-24 04:09] LABS: Lactic Acid 2.2 mmol/L (0.5-2.2)
[2023-06-24] MEDS ORDERED: Iopamidol 370 76% 100 ML VIAL ONE (10:44)
== END 2023-06-24 04:30 | disposition home or self-care (01) ==
LOC: ERS 22:14
DX: B34.9 Viral infection, unspecified (principal); E11.9 Type 2 diabetes mellitus without complications; R07.9 Chest pain, unspecified; F17.210 Nicotine dependence, cigarettes, uncomplicated
CPT/HCPCS: 36415; 36416; 71045; 71275; 80053; 81001; 82010; 82805; 83605; 83690; 83880; 83930; 84484; 85025; 85379; 87040; 93005; 96365; 96366; 96367; J0692; J3370-JW; J3490